=== PATIENT | female | born 1960 | race Caucasian/White ===

== ENCOUNTER 2023-08-13 10:51 | Inpatient (IN) ==
[2023-08-13] MEDS: SODIUM CHLORIDE 0.9% 1,000 ML IV SCH (11:29)
--- NOTE | 2023-08-13 11:39 | Emergency Department Note ---
Impression & Plan Pneumonia, COPD (chronic obstructive pulmonary disease), Diarrhea, Hypokalemia, Acute hyponatremia, Dehydration ED Provider Note NAME: AMBER CORTEZ AGE: 63 SEX: F : 1960 ARRIVES VIA: Walk-In INFORMANT: Patient, ED PROVIDER(S): Shorty Dugan MD CHIEF COMPLAINT: Shortness of breath, weakness, diarrhea HPI: This is a 63-year-old female presenting for 2 weeks worth of shortness of breath, weakness and diarrhea. Patient states that [place] she had some bad food which caused significant diarrhea. This however lasted for multiple days/weeks. She notes that she is still having small amounts of diarrhea even today. Generally feels weak. Otherwise currently denies any chest pain or shortness of breath. She notes she has coughing, yellow sputum. Otherwise no dysuria, hematuria, or nausea or vomiting. ROS: See above HPI for pertinent positives & negatives. A total of 10 systems reviewed and were otherwise negative. PHYSICAL EXAMINATION: General: resting comfortably in no acute distress Head: Normocephalic and atraumatic Eyes: Normal inspection, extraocular muscles intact Ear, nose, throat: Normal external exam Neck: Normal range of motion Respiratory: lungs clear to auscultation bilaterally Cardiovascular: Regular rate/rhythm, no murmur GI: soft, nontender, no guarding or rebound Extremities: nontender, moves all extremities Neuro: The patient awake and alert, appropriately conversive, no focal deficits, symmetric faces Skin: Warm, dry, and intact MEDICAL DECISION MAKING: This a 63-year-old female presented for 2 weeks with her shortness of breath, weakness, diarrhea. Patient has mildly tachycardic at this time rates between 105 and 120. She also hypoxic on arrival with saturations below 88. She currently 2 L nasal cannula satting around 91 to 93%. She does not feel short of breath however. Borderline hypotensive currently, concern for sepsis at this time. -Given 1 L normal saline upfront. -ECG independently interpreted by me with sinus tachycardia, rate of 115, normal axis, normal [place], normal QRS, normal QTc, no ST segment elevations consistent with STEMI criteria, intermittent PACs -Chest x-ray independently interpreted by me showing a focal opacity in the left lower lobe concerning for pneumonia, no pleural effusion or pneumothorax is noted. -Blood work significant abnormal with hyponatremia to 120, hypokalemia 2.7, anion gap as well as transaminitis of unclear etiology -Patient urinalysis reveals no signs UTI -Patient adenovirus positive at this time of due to stent of pneumonia, will do ceftriaxone -Patient does have improved blood pressures after fluid resuscitation. She feels better with oxygen -CT imaging does not reveal acute process in the abdomen or pulm embolism does reveal a pneumonia previously stated -Patient required mission at this time for pneumonia treatment was hyponatremia and hypokalemia Differential diagnosis: Sepsis, pneumonia, PE, ACS, dissection ER treatment provided: See below Diagnostics interpreted by me: ECG: See above Cardiac Monitoring: An order was placed for continuous cardiac monitoring. The monitor shows a rate of 81, sinus rhythm. Laboratory studies: As stated above and show below. Imaging studies: See below. Critical Care Note: I have personally spent 35 minutes of critical care time in the direct management of this patient. This includes bedside care, interpretation of diagnostic studies, and testing, discussion with consultants, patient, and family members, and other required patient management activities. This 35 minutes is in excess of all separately billable procedures. Past Med/Surg History Medical History (Updated 08/13/23 @ 18:11 by Shorty Dugan MD) Alcohol use Tobacco use HTN (hypertension) Dyslipidemia COPD (chronic obstructive pulmonary disease) Surgical History History of hysterectomy Family History Other Cancer Coronary heart disease Social History Smoking Status: Current every day smoker Hx Alcohol Use: Yes (2-3 beers daily) Hx Substance Use: No Feels Safe at Home: Yes Allergies Allergies Allergy/AdvReac Type Severity Reaction Status Date / Time No Known Allergies Allergy Unknown Verified 03/30/05 13:21 aspirin AdvReac Mild UPSET Verified 06/07/09 04:19 STOMACH Home Meds Home Medications Medication Instructions Recorded Confirmed albuterol sulfate 90 mcg/actuation 2 puff inhalation Q4H PRN 08/13/23 08/13/23 aerosol inhaler Shortness Of Breath Or Wheezing atorvastatin 10 mg tablet 10 mg PO DAILY 08/13/23 08/13/23 fluticasone propionate 50 2 spray intranasal DAILY 08/13/23 08/13/23 mcg/actuation nasal spray,suspension lisinopril 10 mg tablet 10 mg PO DAILY 08/13/23 08/13/23 umeclidinium 62.5 mcg-vilanterol 1 inh inhalation DAILY 08/13/23 08/13/23 25 mcg/actuation powdr for inhalation (Anoro Ellipta) Results & Data (ED) Vital Signs Vital Signs - 24 hr 08/13/23 10:58 08/13/23 11:03 08/13/23 11:09 Temperature 36.0 C L Temperature Source Temporal Artery Scan Pulse Rate 117 H 108 H 104 H Pulse Rate [Apical] Pulse Rate from SpO2 Sensor 105 H Respiratory Rate 20 20 20 Respiratory Effort / Characteristics Respiratory Depth Blood Pressure 119/75 109/78 Blood Pressure [Right Arm] Blood Pressure Mean 89 88 Blood Pressure Mean [Right Arm] Blood Pressure Position Sitting Pulse Oximetry 88 L 91 91 Oxygen Delivery Method Room Air Nasal Cannula Room Air Oxygen Flow Rate 2 Sepsis Recent Fever Within 48 Hours No Sepsis New/Unexplained Change in Mental Status No Sepsis Action Taken by Nursing No Action Required 08/13/23 11:25 08/13/23 11:30 08/13/23 11:44 Temperature Temperature Source Pulse Rate 102 H 102 H Pulse Rate [Apical] Pulse Rate from SpO2 Sensor 104 H 97 H Respiratory Rate 19 18 Respiratory Effort / Characteristics Respiratory Depth Blood Pressure 101/66 91/64 L Blood Pressure [Right Arm] Blood Pressure Mean 77 73 Blood Pressure Mean [Right Arm] Blood Pressure Position Pulse Oximetry 91 91 89 L Oxygen Delivery Method Room Air Room Air Nasal Cannula Oxygen Flow Rate 2 Sepsis Recent Fever Within 48 Hours Sepsis New/Unexplained Change in Mental Status Sepsis Action Taken by Nursing 08/13/23 11:45 08/13/23 12:03 08/13/23 13:00 Temperature Temperature Source Pulse Rate 104 H Pulse Rate [Apical] 101 H Pulse Rate from SpO2 Sensor Respiratory Rate 20 Respiratory Effort / Characteristics Non-Labored Spontaneous Respiratory Depth Normal Blood Pressure Blood Pressure [Right Arm] 104/70 Blood Pressure Mean Blood Pressure Mean [Right Arm] 81 Blood Pressure Position Pulse Oximetry 90 93 Oxygen Delivery Method Nasal Cannula Nasal Cannula Oxygen Flow Rate 3 3 Sepsis Recent Fever Within 48 Hours Sepsis New/Unexplained Change in Mental Status Sepsis Action Taken by Nursing 08/13/23 13:26 08/13/23 13:30 08/13/23 13:42 Temperature Temperature Source Pulse Rate 93 H 101 H Pulse Rate [Apical] Pulse Rate from SpO2 Sensor 104 H Respiratory Rate 26 H 17 Respiratory Effort / Characteristics Respiratory Depth Blood Pressure 104/70 123/87 Blood Pressure [Right Arm] Blood Pressure Mean 81 99 Blood Pressure Mean [Right Arm] Blood Pressure Position Pulse Oximetry 96 91 93 Oxygen Delivery Method Nasal Cannula Nasal Cannula Nasal Cannula Oxygen Flow Rate 4 4 4 Sepsis Recent Fever Within 48 Hours Sepsis New/Unexplained Change in Mental Status Sepsis Action Taken by Nursing 08/13/23 14:00 08/13/23 14:30 08/13/23 15:00 Temperature Temperature Source Pulse Rate 89 83 88 Pulse Rate [Apical] Pulse Rate from SpO2 Sensor 87 83 86 Respiratory Rate 12 31 H 23 Respiratory Effort / Characteristics Respiratory Depth Blood Pressure 107/79 100/70 121/75 Blood Pressure [Right Arm] Blood Pressure Mean 88 80 90 Blood Pressure Mean [Right Arm] Blood Pressure Position Pulse Oximetry 96 96 94 Oxygen Delivery Method Nasal Cannula Nasal Cannula Nasal Cannula Oxygen Flow Rate 4 4 4 Sepsis Recent Fever Within 48 Hours Sepsis New/Unexplained Change in Mental Status Sepsis Action Taken by Nursing Laboratory Data 08/13/23 11:16 08/13/23 11:16 Lab Results 08/13/23 08/13/23 08/13/23 Range/Units 11:10 11:15 11:16 WBC 7.88 (4.8-10.8) K/ul RBC 4.84 (4.20-5.40) M/uL Hgb 15.6 (12.0-16.0) g/dl POC Hgb (12.0-16.0) g/dl Hct 43.5 (37.0-47.0) % POC Hct (37-47) % MCV 89.9 (80.0-100.0) fL MCH 32.2 (25.0-34.0) pg MCHC 35.9 (32.0-36.0) g/dL RDW Std Deviation 39.1 (36.4-46.3) fL RDW Coeff of Aria 11.9 (11.5-14.5) % Plt Count 182 (130-400) K/uL MPV 11.4 (9.4-12.4) fL Immature Gran % (Auto) 1.0 % Neut % (Auto) 82.2 % Lymph % (Auto) 11.5 % [place] % (Auto) 5.2 % Eos % (Auto) 0.0 % Baso % (Auto) 0.1 % Neut # (Auto) 6.47 (1.40-6.50) K/uL Lymph # (Auto) 0.91 L (1.20-3.40) K/uL [place] # (Auto) 0.41 (0.11-0.59) K/uL Eos # (Auto) 0.00 (0.00-0.50) K/uL Baso # (Auto) 0.01 (0.00-0.20) K/uL Immature Gran # (Auto) 0.08 (0.01-0.20) K/uL Echinocytes 1+ POC Sodium (135-144) mmol/L Sodium 120 L (136-145) mmol/L POC Potassium (3.3-5.0) mmol/L Potassium 2.7 L (3.5-5.1) mmol/L POC Chloride (101-112) mmol/L Chloride 83 L (98-107) mmol/L Carbon Dioxide 25 (21-32) mmol/L POC Total CO2 (24-31) mmol/L Anion Gap 12 H (3-11) POC Anion Gap (16-25) mmol/L POC BUN (7-18) mg/dl BUN 13 (6-23) mg/dl Creatinine 0.70 (0.6-1.2) mg/dl POC Creatinine (0.6-1.3) mg/dl Est Cr Clr Drug Dosing 53.7 ml/min Est GFR ( Amer) 106.1 ml/min Est GFR (Non-Af Amer) 91.6 ml/min BUN/Creatinine Ratio 18.6 (10-20) Glucose 240 H (70-99(Fasting)) mg/dl POC Glucose (other) (70-99) mg/dl Lactate 4.7 H* (0.4-2.0) mmol/L Calcium 8.4 L (8.6-10.3) mg/dl POC Ioniz Calcium Aron (1.12-1.32) mmol/l Phosphorus 2.0 L (2.5-4.9) mg/dl Magnesium 2.1 (1.7-2.4) mg/dl Total Bilirubin 0.6 (0.2-1.0) mg/dl Direct Bilirubin 0.2 (0-0.2) mg/dl AST 173 H (13-39) U/L ALT 121 H (7-52) U/L Alkaline Phosphatase 55 (34-104) U/L Troponin I High Sens 9.6 (0-14) pg/ml Total Protein 6.8 (6.0-8.3) gm/dl Albumin 3.5 (3.4-5.0) gm/dl Lipase 62 (11-82) U/L Procalcitonin 0.50 (0-0.5) ng/ml Urine Color Urine Appearance (Clear) Urine pH (4.5-7.5) Ur Specific [place] (1.000-1.030) Urine Protein (Negative) Urine Glucose (UA) (Negative) Urine Ketones (Negative) Urine Blood (Negative) Urine Nitrite (Negative) Urine Bilirubin (Negative) Urine Urobilinogen (Negative) Ur Leukocyte Esterase (Negative) Adenovirus (PCR) DETECTED A (NotDetected) B. pertussis DNA (PCR) Not Detected (NotDetected) B.parapertussis DNA PCR Not Detected (NotDetected) C. pneumoniae DNA (PCR) Not Detected (NotDetected) Coronavirus OC43 (PCR) Not Detected (NotDetected) Coronavirus HKU1 (PCR) Not Detected (NotDetected) Coronavirus 229E (PCR) Not Detected (NotDetected) SARS-CoV-2 (PCR) Not Detected (NotDetected) Coronavirus NL63 (PCR) Not Detected (NotDetected) Human Metapneumovir PCR Not Detected (NotDetected) Influenza Type A (PCR) Not Detected (NotDetected) Influenza Type B (PCR) Not Detected (NotDetected) M. pneumoniae (PCR) Not Detected (NotDetected) Parainfluenza 1 (PCR) Not Detected (NotDetected) Parainfluenza 2 (PCR) Not Detected (NotDetected) Parainfluenza 3 (PCR) Not Detected (NotDetected) Parainfluenza 4 (PCR) Not Detected (NotDetected) RSV (PCR) Not Detected (NotDetected) Entero/Rhino (PCR) Not Detected (NotDetected) 04/12/24 04/12/24 04/12/24 Range/Units 11:29 13:00 13:58 WBC (4.8-10.8) K/ul RBC (4.20-5.40) M/uL Hgb (12.0-16.0) g/dl POC Hgb 13.3 (12.0-16.0) g/dl Hct (37.0-47.0) % POC Hct 39 (37-47) % MCV (80.0-100.0) fL MCH (25.0-34.0) pg MCHC (32.0-36.0) g/dL RDW Std Deviation (36.4-46.3) fL RDW Coeff of Aria (11.5-14.5) % Plt Count (130-400) K/uL MPV (9.4-12.4) fL Immature Gran % (Auto) % Neut % (Auto) % Lymph % (Auto) % [place] % (Auto) % Eos % (Auto) % Baso % (Auto) % Neut # (Auto) (1.40-6.50) K/uL Lymph # (Auto) (1.20-3.40) K/uL [place] # (Auto) (0.11-0.59) K/uL Eos # (Auto) (0.00-0.50) K/uL Baso # (Auto) (0.00-0.20) K/uL Immature Gran # (Auto) (0.01-0.20) K/uL Echinocytes POC Sodium 125 L (135-144) mmol/L Sodium (136-145) mmol/L POC Potassium 2.2 L* (3.3-5.0) mmol/L Potassium (3.5-5.1) mmol/L POC Chloride 86 L (101-112) mmol/L Chloride (98-107) mmol/L Carbon Dioxide (21-32) mmol/L POC Total CO2 24 (24-31) mmol/L Anion Gap (3-11) POC Anion Gap 18.0 (16-25) mmol/L POC BUN 9 (7-18) mg/dl BUN (6-23) mg/dl Creatinine (0.6-1.2) mg/dl POC Creatinine 0.5 L (0.6-1.3) mg/dl Est Cr Clr Drug Dosing ml/min Est GFR ( Amer) ml/min Est GFR (Non-Af Amer) ml/min BUN/Creatinine Ratio (10-20) Glucose (70-99(Fasting)) mg/dl POC Glucose (other) 216 H (70-99) mg/dl Lactate 2.2 H* (0.4-2.0) mmol/L Calcium (8.6-10.3) mg/dl POC Ioniz Calcium Aron 0.90 L (1.12-1.32) mmol/l Phosphorus (2.5-4.9) mg/dl Magnesium (1.7-2.4) mg/dl Total Bilirubin (0.2-1.0) mg/dl Direct Bilirubin (0-0.2) mg/dl AST (13-39) U/L ALT (7-52) U/L Alkaline Phosphatase (34-104) U/L Troponin I High Sens (0-14) pg/ml Total Protein (6.0-8.3) gm/dl Albumin (3.4-5.0) gm/dl Lipase (11-82) U/L Procalcitonin (0-0.5) ng/ml Urine Color Yellow Urine Appearance Clear (Clear) Urine pH 6.5 (4.5-7.5) Ur Specific [place] 1.004 (1.000-1.030) Urine Protein Negative (Negative) Urine Glucose (UA) Trace H (Negative) Urine Ketones Negative (Negative) Urine Blood Negative (Negative) Urine Nitrite Negative (Negative) Urine Bilirubin Negative (Negative) Urine Urobilinogen Negative (Negative) Ur Leukocyte Esterase Negative (Negative) Adenovirus (PCR) (NotDetected) B. pertussis DNA (PCR) (NotDetected) B.parapertussis DNA PCR (NotDetected) C. pneumoniae DNA (PCR) (NotDetected) Coronavirus OC43 (PCR) (NotDetected) Coronavirus HKU1 (PCR) (NotDetected) Coronavirus 229E (PCR) (NotDetected) SARS-CoV-2 (PCR) (NotDetected) Coronavirus NL63 (PCR) (NotDetected) Human Metapneumovir PCR (NotDetected) Influenza Type A (PCR) (NotDetected) Influenza Type B (PCR) (NotDetected) M. pneumoniae (PCR) (NotDetected) Parainfluenza 1 (PCR) (NotDetected) Parainfluenza 2 (PCR) (NotDetected) Parainfluenza 3 (PCR) (NotDetected) Parainfluenza 4 (PCR) (NotDetected) RSV (PCR) (NotDetected) Entero/Rhino (PCR) (NotDetected) Administered Medications Discontinued Medications Sodium Chloride (Nss) 1,000 mls @ 999 mls/hr IV .Q1H1M DANNIE Stop: 08/13/23 13:15 Last Infusion: 08/13/23 14:29 Dose: Infused Documented By: Admin: 08/13/23 13:23 Dose: 999 mls/hr Documented By: Infusion: 08/13/23 12:30 Dose: Infused Documented By: Admin: 08/13/23 11:29 Dose: 999 mls/hr Documented By: Magnesium Sulfate/Dextrose (Magnesium Sulfate / D5w) 1 gm in 100 mls @ 200 mls/hr IV Q30M DANNIE Stop: 08/13/23 12:33 Last Infusion: 08/13/23 12:40 Dose: Infused Documented By: Admin: 08/13/23 12:10 Dose: 200 mls/hr Documented By: Infusion: 08/13/23 12:10 Dose: Infused Documented By: Admin: 08/13/23 11:41 Dose: 200 mls/hr Documented By: Ceftriaxone Sodium (Rocephin) 1,000 mg in 50 mls @ 100 mls/hr IV NOW STA Stop: 08/13/23 13:18 Last Infusion: 08/13/23 13:50 Dose: Infused Documented By: Admin: 08/13/23 13:20 Dose: 100 mls/hr Documented By: Doxycycline Hyclate 100 mg/ (Dextrose) 100 mls @ 50 mls/hr IV NOW ONE Stop: 08/13/23 17:14 Last Admin: 08/13/23 15:48 Dose: 50 mls/hr Documented By: ALVINA Ioversol (Optiray 320 125ml) 118 ml IV ONCE ONE Stop: 08/13/23 13:18 Last Admin: 08/13/23 13:17 Dose: 118 ml Documented By: STEPHANIE Potassium Chloride (Potassium Chloride Crtab 20 Meq Tabcr) 40 meq PO NOW STA Stop: 08/13/23 12:13 Last Admin: 08/13/23 13:23 Dose: 40 meq Documented By: Imaging Data Radiologist's Impression: Chest X-Ray 08/13/23 11:03 XR chest 1V portable CLINICAL HISTORY: Sepsis TECHNIQUE: Single frontal radiograph of the chest was obtained. Comparison: Comparison is made to chest radiograph 03/14/2018 FINDINGS: No lines and tubes are seen. Calcified aortic knob is seen. Left-sided airspace opacities are seen. No evidence of pleural effusion or pneumothorax. IMPRESSION: Left airspace opacities are compatible with pneumonia. ACT 112: Negative or not required by law. Electronically signed by: Bentley Pedroza M.D. 08/13/2023 11:56 AM Chest CTA 08/13/23 11:22 CT angio chest PE protocol Further HISTORY: 63 years-old Female with PE. Acute shortness of breath TECHNIQUE: Multiple CTA images of the chest were obtained after the intravenous administration of 118 ml Optiray. Coronal and sagittal MIPS were obtained from the axial data set and were submitted for review. All measurements were obtained according to NASCET criteria. A dose lowering technique was utilized adhering to the principles of ALARA. COMPARISON: CT abdomen and pelvis of same day FINDINGS: CTA: Heart is mildly enlarged. No pericardial effusion. No thoracic aortic aneurysm or dissection. Patency of the image great vessels. Mild descending thoracic aortic tortuosity. No pulmonary emboli identified. CT CHEST: No thyroid nodule identified. There is mild mediastinal and hilar lymphadenopathy which includes subcarinal lymph nodes measuring up to 1.3 cm in short axis. Mild nonspecific circumferential wall thickening of the mid to distal esophagus. Trace left pleural effusion. No pneumothorax. Moderate pulmonary emphysema with bronchitis and mucous plugging. The right lung is generally clear. There is multifocal dense airspace consolidation throughout the left lung and a multisegmental distribution with air bronchograms. No suspicious pulmonary nodules or masses identified. No acute upper abdominal abnormality. No acute fracture. IMPRESSION: 1. No pulmonary emboli identified. 2. Multifocal pneumonia throughout the left lung. Follow-up imaging after treatment course recommended in order to document resolution. 3. Moderate emphysema with bronchitis and mucous plugging. 4. Trace left pleural effusion. 5. Mediastinal and hilar lymphadenopathy is likely reactive. ACT 112: Negative or not required by law. The above report was generated using voice recognition software. It may contain grammatical, syntax or spelling errors. Electronically signed by: John Fountain M.D. 08/13/2023 2:23 PM Abdomen/Pelvis CT 08/13/23 11:[address] WITH IV CONTRAST CT DOSE: 553.14 mGy.cm HISTORY: diarrhea w/ pain for 2 weeks TECHNIQUE: Multiaxial CT images of the abdomen and pelvis were performed following the use of intravenous contrast. A dose lowering technique was utilized adhering to the principles of ALARA. COMPARISON STUDY: None. FINDINGS: Consolidative airspace opacities within the left lower lobe with additional interstitial thickening and groundglass densities within the left lung base consistent with a pneumonia. The left lower lobe bronchi are partially opacified. Therefore, this could be due to prior aspiration. This is better appreciated on the same day chest CT. Emphysema is noted at the lung bases. No pneumoperitoneum. No pneumatosis. No acute fractures. A 5 mm hypodense lesion within the left hepatic lobe and a 5 mm hypodense lesion within the right kidney. These are technically due to small to characterize but statistically represent cysts. The main portal vein is patent. The gallbladder, pancreas, spleen, adrenal glands, left kidney are unremarkable. No hydronephrosis. Small nodule adjacent to the left kidney on image 92 favors an accessory spleen rather than a renal lesion. Moderate calcified plaque within the normal caliber abdominal aorta. No retroperitoneal or pelvic lymphadenopathy. No pelvic free fluid. No bladder wall thickening. Prior hysterectomy. Colonic diverticulosis. No evidence for acute diverticulitis. No bowel wall thickening or obstruction. Normal appendix. IMPRESSION: 1. Left lower lobe airspace opacities consistent with a pneumonia. 2. No bowel wall thickening or obstruction. 3. Colonic diverticulosis. No evidence for acute diverticulitis. 4. Normal appendix. 5. Additional findings described above.. ACT 112: Negative or not required by law. Electronically signed by: Jung Sylvester M.D. 08/13/2023 1:46 PM Discharge Plan Visit Data Chief Complaint: Illness Stated Complaint: VIRAL INFECTION ED Provider: Shorty Dugan Discharge Problem: Pneumonia, COPD (chronic obstructive pulmonary disease), Diarrhea, Hypokalemia, Acute hyponatremia, Dehydration Patient Disposition: Admitted As Inpatient Discharge Instructions Interventions: ED Discharge Assessment Last Done: 08/13/23 17:00
[2023-08-13] MEDS: MAGNESIUM SULFATE / D5W 1 GM/100 ML BAG IV SCH (11:41)
[2023-08-13 11:42] LABS: iSTAT Creatinine 0.5 mg/dl (0.6-1.3); iSTAT Hemoglobin 13.3 g/dl (12.0-16.0); iSTAT Ionized Calcium 0.9 mmol/l (1.12-1.32); iSTAT Potassium 2.2 mmol/L (3.3-5.0)
[2023-08-13 11:50] LABS: Hematocrit (blood only) 43.5 % (37.0-47.0); Hemoglobin 15.6 g/dl (12.0-16.0); Mean Corpuscular Hemoglobin 32.2 pg (25.0-34.0); Mean Corpuscular Hgb Conc 35.9 g/dL (32.0-36.0); Mean Corpuscular Volume 89.9 fL (80.0-100.0); Mean Platelet Volume 11.4 fL (9.4-12.4); Platelet Count 182 K/uL (130-400); RDW Coefficient of Variation 11.9 % (11.5-14.5); RDW Standard Deviation 39.1 fL (36.4-46.3); Red Blood Count 4.84 M/uL (4.20-5.40); White Blood Count 7.88 K/ul (4.8-10.8)
--- NOTE | 2023-08-13 11:57 | XRay Report ---
XR chest 1V portable CLINICAL HISTORY: Sepsis TECHNIQUE: Single frontal radiograph of the chest was obtained. Comparison: Comparison is made to chest radiograph 03/14/2018 FINDINGS: No lines and tubes are seen. Calcified aortic knob is seen. Left-sided airspace opacities are seen. N o evidence of pleural effusion or pneumothorax. IMPRESSION: Left airspace opacities are compatible with pneumonia. ACT 112: Negative or not required by law. Electronically signed by: Bentley Pedroza M.D. 08/13/2023 11:56 AM
[2023-08-13 12:03] LABS: Albumin Level 3.5 gm/dl (3.4-5.0); BUN Creatinine Ratio 18.6 (10-20); Bilirubin Direct 0.2 mg/dl (0-0.2); Bilirubin,Total 0.6 mg/dl (0.2-1.0); Calcium 8.4 mg/dl (8.6-10.3); Creatinine Clr Calc Pharmacy 53.7 ml/min; Est GFR (African American) 106.1 ml/min; Est GFR (Non-African American) 91.6 ml/min; Magnesium 2.1 mg/dl (1.7-2.4); Potassium 2.7 mmol/L (3.5-5.1); Total Protein 6.8 gm/dl (6.0-8.3)
[2023-08-13 12:08] LABS: Troponin I High Sensitivity 9.6 pg/ml (0-14)
[2023-08-13 12:26] LABS: Basophils # (auto) 0.01 K/uL (0.00-0.20); Basophils % (auto) 0.1 %; Echinocytes 1+; Immature Granulocytes # (auto) 0.08 K/uL (0.01-0.20); Lymphocytes # (auto) 0.91 K/uL (1.20-3.40); Lymphocytes % (auto) 11.5 %; Monocytes # (auto) 0.41 K/uL (0.11-0.59); Monocytes % (auto) 5.2 %; Neutrophils # (auto) 6.47 K/uL (1.40-6.50); Neutrophils % (auto) 82.2 %
[2023-08-13 12:41] LABS: Adenovirus PCR DETECTED (NotDetected); Bordetella parapertussis PCR Not Detected (NotDetected); Bordetella pertussis PCR Not Detected (NotDetected); Chlamydia pneumoniae PCR Not Detected (NotDetected); Coronavirus 229E PCR Not Detected (NotDetected); Coronavirus CoV-2 (COVID19)PCR Not Detected (NotDetected); Coronavirus HKU1 PCR Not Detected (NotDetected); Coronavirus NL63 PCR Not Detected (NotDetected); Coronavirus OC43PCR Not Detected (NotDetected); Human Metapneumovirus PCR Not Detected (NotDetected); Influenza A PCR Not Detected (NotDetected); Influenza B PCR Not Detected (NotDetected); Mycoplasma pneumoniae PCR Not Detected (NotDetected); Parainfluenza Virus 1 PCR Not Detected (NotDetected); Parainfluenza Virus 2 PCR Not Detected (NotDetected); Parainfluenza Virus 3 PCR Not Detected (NotDetected); Parainfluenza Virus 4 PCR Not Detected (NotDetected); Respiratory Syncytial VirusPCR Not Detected (NotDetected); Rhinovirus/Enterovirus PCR Not Detected (NotDetected)
[2023-08-13] MEDS: OPTIRAY 320 125ml IV ONE (13:17)
[2023-08-13] MEDS: cefTRIAXone SODIUM 1,000 MG/50 ML BAG IV STA (13:20)
[2023-08-13] MEDS: POTASSIUM CHLORIDE CRTAB 20 MEQ TABCR PO STA (13:23)
[2023-08-13 13:30] LABS: Appearance Urine Clear (Clear); Bilirubin Urine Negative (Negative); Blood Urine Negative (Negative); Color Urine Yellow; Glucose Urine UA Trace (Negative); Ketones Urine Negative (Negative); Leukocyte Esterase Urine Negative (Negative); Nitrite Urine Negative (Negative); Protein Urine Negative (Negative); Specific Gravity Urine 1.004 (1.000-1.030); Urobilinogen Urine Negative (Negative); pH Urine 6.5 (4.5-7.5)
--- NOTE | 2023-08-13 13:48 | CT Scan Report ---
ABDOMEN AND PELVIS CT WITH IV CONTRAST CT DOSE: 553.14 mGy.cm HISTORY: diarrhea w/ pain for 2 weeks TECHNIQUE: Multiaxial CT images of the abdomen and pelvis were performed following the use of intrave nous contrast. A dose lowering technique was utilized adhering to the principles of ALARA. COMPARISON STUDY: None. FINDINGS: Consolidative airspace opacities within the left lower lobe with additional interstitial th ickening and groundglass densities within the left lung base consistent with a pneumonia. The left lo wer lobe bronchi are partially opacified. Therefore, this could be due to prior aspiration. This is b christina appreciated on the same day chest CT. Emphysema is noted at the lung bases. No pneumoperitoneum . No pneumatosis. No acute fractures. A 5 mm hypodense lesion within the left hepatic lobe and a 5 mm hypodense lesion within the right kidney. These are technically due to small to characterize but sta tistically represent cysts. The main portal vein is patent. The gallbladder, pancreas, spleen, adrena l glands, left kidney are unremarkable. No hydronephrosis. Small nodule adjacent to the left kidney o n image 92 favors an accessory spleen rather than a renal lesion. Moderate calcified plaque within th e normal caliber abdominal aorta. No retroperitoneal or pelvic lymphadenopathy. No pelvic free fluid. No bladder wall thickening. Prior hysterectomy. Colonic diverticulosis. No evidence for acute divert iculitis. No bowel wall thickening or obstruction. Normal appendix. IMPRESSION: 1. Left lower lobe airspace opacities consistent with a pneumonia. 2. No bowel wall thickening or obstruction. 3. Colonic diverticulosis. No evidence for acute diverticulitis. 4. Normal appendix. 5. Additional findings described above.. ACT 112: Negative or not required by law. Electronically signed by: Jung Sylvester M.D. 08/13/2023 1:46 PM
--- NOTE | 2023-08-13 14:09 | History & Physical Report ---
Date of Service August 13, 2023 Assessment & Plan (1) Pneumonia: Plan: Patient is 63 year old female with PMH COPD, tobacco use, HTN, dyslipidemia presented to ER with complaint of weakness and diarrhea and cough x 2 weeks In ER noted to be hypoxic 88% on room air up to 93% on 3 L. Initially tachycardic 117, BP 119/75, respirations 20, afebrile Lactate: 4.7--> 2.2. No leukocytosis. Procalcitonin: 0.5. + Adenovirus on [employer] respiratory panel CXR: Opacities left lung CTA chest: No pulmonary emboli identified. Multifocal pneumonia throughout the left lung. Moderate emphysema with bronchitis and mucous plugging. Trace left pleural effusion. Mediastinal and hilar lymphadenopathy is likely reactive In ER given Rocephin 1 g IV, 1L NSS Legionella pending Supplemental oxygen as needed Trend lactate Hold on further IVF until repeat BMP given hyponatremia Continue Rocephin, add doxycycline DuoNebs Incentive spirometry, flutter valve, guaifenesin CBC, CMP in a.m. (2) Diarrhea: Plan: - 08/05/23 had gross red blood from rectum with mucous, mostly all blood without stool. Since that time having diarrhea with 3 episodes daily initially had tactile fever and chills lasted 3-4 days. No further tactile fevers. Afebrile in ER CT abdomen pelvis: No bowel wall thickening or obstruction. Colonic diverticulosis. No evidence for acute diverticulitis. Normal appendix. If recurrent diarrhea obtain stool studies, C. difficile (3) Hypokalemia: Plan: K: 2.7 In ER given 40 mEq KCl p.o. Continue replace with 2K riders and 40 mEq KCl this evening Repeat BMP tonight BMP in a.m. (4) Hyponatremia: Plan: Na: 122 corrected for glucose of 240 Suspect acute hyponatremia from GI losses and poor oral intake. Legionella testing pending In ER given 1 L NSS Repeat BMP tonight to further assess IVF needs BMP in a.m. If no improvement may need to consider nephrology consult (5) Elevated LFTs: Plan: AST: 173, ALT: 121 with normal T. bili and alk phos. No comparison LFTs available at this time Prior 3 beer daily drinker. Has not had a drink for past 12 days Repeat CMP in a.m. May need further workup (6) Elevated glucose: Plan: Random glucose: 240 No prior diagnosis of diabetes A1c in a.m. NovoLog sliding scale per protocol (7) COPD (chronic obstructive pulmonary disease): Plan: Continue home inhalers Scheduled DuoNebs On antibiotics as above (8) HTN (hypertension): Plan: Continue lisinopril (9) Dyslipidemia: Plan: Continue atorvastatin (10) Tobacco use: Plan: Smoking since age 16, 0.5 PPD Has not smoked for the past 2 weeks Encouraged continue smoking cessation Denies nicotine patch at this time (11) Alcohol use: Plan: Drinks 3 beers daily. Has not had drink since 08/02/2023. Denies a history of alcohol withdrawal Low likelihood withdrawal currently being 2 weeks and/drink DVT Prophylaxis Heparin SQ Full Code as per discussion with pt Follows with Dr Painting for routine care Pt was seen and care coordinated with Dr Salinas. See addendum I spent a total of 78 minutes reviewing notes, outpatient records, labs, medication, coordinating, documenting and providing care for this patient excluding time spent in the performance of separately billed services. History of Present Illness Chief Complaint: weakness, diarrhea Primary Care Provider: Bradyen Painting MD Patient is 63 year old female with PMH COPD, tobacco use, HTN, dyslipidemia presented to ER with complaint of weakness and diarrhea. History obtained from patient and outpatient chart review. Patient states on 08/03/23 came back from [place] and ate rotisserie chicken and 30 minutes later started with hematochezia. - 08/05/23 had gross red blood from rectum with mucous, mostly all blood without stool. Since that time having diarrhea with 3 episodes daily that has continued. Watery stools. Had tactile fever and chills lasted 3-4 days. Seen PCPs office 08/04/2023 for diarrhea and hematochezia and initially thought may be food poisoning, however patient reports continued symptoms. She states has been coughing x 2 weeks of productive yellow and brownish color sputum. Feels cough might be a little better past couple of days. Denies CP, or noted SOB. Does not wear oxygen at baseline. Recently some dizziness with walking. Last diarrhea yesterday. Initially when symptoms began reports abdominal cramping and bloating which have since resolved but diarrhea continues. Reports poor oral intake. Denies syncope. States this week is just felt "wiped out". Past couple weeks hasn't been smoking. Prior to that 1/2ppd. Smoking started age 16. Drinks 2-3 beers nightly. Last drink 08/02/23. Denies N/V/D/C, ALLISON, orthopnea, palpitations, hemoptysis, sore throat, choking, otalgia, paresthesias, extremity edema, rashes, urinary symptoms. Allergies Allergy/AdvReac Type Severity Reaction Status Date / Time No Known Allergies Allergy Unknown Verified 03/30/05 13:21 aspirin AdvReac Mild UPSET Verified 06/07/09 04:19 STOMACH Home Medications Medication Instructions Recorded Confirmed Type albuterol sulfate 90 mcg/actuation 2 puff inhalation Q4H PRN 08/13/23 08/13/23 History aerosol inhaler Shortness Of Breath Or Wheezing atorvastatin 10 mg tablet 10 mg PO DAILY 08/13/23 08/13/23 History fluticasone propionate 50 2 spray intranasal DAILY 08/13/23 08/13/23 History mcg/actuation nasal spray,suspension lisinopril 10 mg tablet 10 mg PO DAILY 08/13/23 08/13/23 History umeclidinium 62.5 mcg-vilanterol 1 inh inhalation DAILY 08/13/23 08/13/23 History 25 mcg/actuation powdr for inhalation (Anoro Ellipta) Past Med/Surg History Medical History Alcohol use Tobacco use HTN (hypertension) Dyslipidemia COPD (chronic obstructive pulmonary disease) Surgical History History of hysterectomy Family History Other Cancer Coronary heart disease Social History Smoking Status: Former smoker Hx Alcohol Use: Yes Hx Substance Use: No Current Living Situation: Alone Feels Safe at Home: Yes Review of Systems Review of Systems: All systems reviewed & are unremarkable except as noted in HPI & below Physical Exam Physical Exam: General: chronic ill appearing, in no respiratory distress on 3L via NC, thin female Head: normocephalic, atraumatic Eyes: conjunctiva non-injected, anicteric ENT: normal inspection external ears, nose, mucous membranes dry Neck: supple, trachea midline Lungs: no respiratory distress on current 3L via NC with O2 sat 95%, speaks in sentences. +rhonchi and wheezing throughout CV: RRR, no murmur, no pretibial edema Abd: normal BS, soft, non-tender Ext: no cyanosis, no calf tenderness Neuro: A&O x 3, no focal deficits noted, normal affect Skin: warm, dry Results & Data Results & Data Vital Signs (Past 12 Hours) Vital Signs Temp Pulse Pulse Resp BP BP Pulse Ox 08/13/23 13:42 93 08/13/23 13:00 101 H 20 104/70 93 08/13/23 12:03 104 H 08/13/23 11:45 90 08/13/23 11:44 89 L 08/13/23 11:30 102 H 18 91/64 L 91 08/13/23 11:25 102 H 19 101/66 91 08/13/23 11:09 104 H 20 109/78 91 08/13/23 11:03 108 H 20 91 08/13/23 10:58 36.0 C L 117 H 20 119/75 88 L O2 Del Method O2 Flow Rate 08/13/23 13:42 Nasal Cannula 4 08/13/23 13:00 Nasal Cannula 3 08/13/23 12:03 08/13/23 11:45 Nasal Cannula 3 08/13/23 11:44 Nasal Cannula 2 08/13/23 11:30 Room Air 08/13/23 11:25 Room Air 08/13/23 11:09 Room Air 08/13/23 11:03 Nasal Cannula 2 08/13/23 10:58 Room Air Laboratory Results Short CBC 08/13/23 Range/Units 11:16 WBC 7.88 (4.8-10.8) K/ul Hgb 15.6 (12.0-16.0) g/dl Hct 43.5 (37.0-47.0) % Plt Count 182 (130-400) K/uL BMP 08/13/23 11:16 Sodium 120 L Potassium 2.7 L Chloride 83 L Carbon Dioxide 25 BUN 13 Creatinine 0.70 Glucose 240 H Calcium 8.4 L Liver Function 08/13/23 Range/Units 11:16 Total Bilirubin 0.6 (0.2-1.0) mg/dl Direct Bilirubin 0.2 (0-0.2) mg/dl AST 173 H (13-39) U/L ALT 121 H (7-52) U/L Alkaline Phosphatase 55 (34-104) U/L Albumin 3.5 (3.4-5.0) gm/dl Urine 08/13/23 Range/Units 13:00 Urine Color Yellow Urine Appearance Clear (Clear) Urine pH 6.5 (4.5-7.5) Ur Specific Lemmon 1.004 (1.000-1.030) Urine Protein Negative (Negative) Urine Glucose (UA) Trace H (Negative) Diagnostic Findings Chest X-Ray 08/13/23 11:03 XR chest 1V portable CLINICAL HISTORY: Sepsis TECHNIQUE: Single frontal radiograph of the chest was obtained. Comparison: Comparison is made to chest radiograph 03/14/2018 FINDINGS: No lines and tubes are seen. Calcified aortic knob is seen. Left-sided airspace opacities are seen. No evidence of pleural effusion or pneumothorax. IMPRESSION: Left airspace opacities are compatible with pneumonia. ACT 112: Negative or not required by law. Electronically signed by: Bentley Pedroza M.D. 08/13/2023 11:56 AM Chest CTA 08/13/23 11:22 CT angio chest PE protocol Further HISTORY: 63 years-old Female with PE. Acute shortness of breath TECHNIQUE: Multiple CTA images of the chest were obtained after the intravenous administration of 118 ml Optiray. Coronal and sagittal MIPS were obtained from the axial data set and were submitted for review. All measurements were obtained according to NASCET criteria. A dose lowering technique was utilized adhering to the principles of ALARA. COMPARISON: CT abdomen and pelvis of same day FINDINGS: CTA: Heart is mildly enlarged. No pericardial effusion. No thoracic aortic aneurysm or dissection. Patency of the image great vessels. Mild descending thoracic aortic tortuosity. No pulmonary emboli identified. CT CHEST: No thyroid nodule identified. There is mild mediastinal and hilar lymphadenopathy which includes subcarinal lymph nodes measuring up to 1.3 cm in short axis. Mild nonspecific circumferential wall thickening of the mid to dist al esophagus. Trace left pleural effusion. No pneumothorax. Moderate pulmonary emphysema with bronchitis and mucous plugging. The right lung is generally clear. There is multifocal dense airspace consolidation throughout the left lung and a multisegmental distribution with air bronchograms. No suspicious pulmonary nodules or masses identified. No acute upper abdominal abnormality. No acute fracture. IMPRESSION: 1. No pulmonary emboli identified. 2. Multifocal pneumonia throughout the left lung. Follow-up imaging after treatment course recommended in order to document resolution. 3. Moderate emphysema with bronchitis and mucous plugging. 4. Trace left pleural effusion. 5. Mediastinal and hilar lymphadenopathy is likely reactive. ACT 112: Negative or not required by law. The above report was generated using voice recognition software. It may contain grammatical, syntax or spelling errors. Electronically signed by: John Fountain M.D. 08/13/2023 2:23 PM Abdomen/Pelvis CT 08/13/23 11:[address] WITH IV CONTRAST CT DOSE: 553.14 mGy.cm HISTORY: diarrhea w/ pain for 2 weeks TECHNIQUE: Multiaxial CT images of the abdomen and pelvis were performed following the use of intravenous contrast. A dose lowering technique was utilized adhering to the principles of ALARA. COMPARISON STUDY: None. FINDINGS: Consolidative airspace opacities within the left lower lobe with additional interstitial thickening and groundglass densities within the left lung base consistent with a pneumonia. The left lower lobe bronchi are partially opacified. Therefore, this could be due to prior aspiration. This is better appreciated on the same day chest CT. Emphysema is noted at the lung bases. No pneumoperitoneum. No pneumatosis. No acute fractures. A 5 mm hypodense lesion within the left hepatic lobe and a 5 mm hypodense lesion within the right kidney. These are technically due to small to characterize but statistically represent cysts. The main portal vein is patent. The gallbladder, pancreas, spleen, adrenal glands, left kidney are unremarkable. No hydronephrosis. Small nodule adjacent to the left kidney on image 92 favors an accessory spleen rather than a renal lesion. Moderate calcified plaque within the normal caliber abdominal aorta. No retroperitoneal or pelvic lymphadenopathy. No pelvic free fluid. No bladder wall thickening. Prior hysterectomy. Colonic diverticulosis. No evidence for acute diverticulitis. No bowel wall thickening or obstruction. Normal appendix. IMPRESSION: 1. Left lower lobe airspace opacities consistent with a pneumonia. 2. No bowel wall thickening or obstruction. 3. Colonic diverticulosis. No evidence for acute diverticulitis. 4. Normal appendix. 5. Additional findings described above.. ACT 112: Negative or not required by law. Electronically signed by: Jung Sylvester M.D. 08/13/2023 1:46 PM Supervising Physician Co-Signing Physician Notes Pt seen and examined by me , care coordinated w/ Temo Arias PA-C, pls refer to her note above for further detail. Pt is 63 yo F with COPD, tobacco use, HTN, dyslipidemia who presents with weakness and diarrhea, found to be positive for adenovirus and having pna on chest imaging, hypoxic on 3L of suppl. O2. In addition with electrolyte abnormalities - hyponatremia, hypokalemia, hypophosphatemia. Lactate elevated in ER 4.7 -> 2.2, AST, ALT also elevated 173, 121 respectively. Patient states on 08/03/23 came back from [place] and ate rotisserie chicken and 30 minutes later started with hematochezia. - 08/05/23 had gross red blood from rectum with mucous, mostly all blood without stool. Since that time having diarrhea with 3 episodes daily that has continued. Watery stools. Had tactile fever and chills lasted 3-4 days. Seen PCPs office 08/04/2023 for diarrhea and hematochezia and initially thought may be food poisoning. Stool are now improved and pt denies any more blood in her stool. She states has been coughing x 2 weeks of productive yellow and brownish color sputum. Does not wear oxygen at baseline. Currently sitting up in bed, in NAD, on suppl. O2, watching TV in ED room. She is awake , alert and answers appropriately, she has no conversational dyspnea and overall appears comfortable. Started on rocephin in the ED, will continue, and will add doxy. Legionella antigen pending. Will also obtain stool studies. Will start probiotics. Also add guaifenesin, flutter valve, IS, and try to wean off oxygen. replace electrolytes. She received 2L of NS in the ED, with initial sodium level of 120. Re-check BMP this PM and tmrw AM. MD Rita Update: Na level 130 and pt started on D5W, will recheck Na level tmrw AM.
--- NOTE | 2023-08-13 14:24 | CT Scan Report ---
CT angio chest PE protocol Further HISTORY: 63 years-old Female with PE. Acute shortness of breath TECHNIQUE: Multiple CTA images of the chest were obtained after the intravenous administration of 118 ml Optiray. Coronal and sagittal MIPS were obtained from the axial data set and were submitted for review. All measurements were obtained according to NASCET criteria. A dose lowering technique was u tilized adhering to the principles of ALARA. COMPARISON: CT abdomen and pelvis of same day FINDINGS: CTA: Heart is mildly enlarged. No pericardial effusion. No thoracic aortic aneurysm or dissection. Patency of the image great vessels. Mild descending thoracic aortic tortuosity. No pulmonary emboli identifi ed. CT CHEST: No thyroid nodule identified. There is mild mediastinal and hilar lymphadenopathy which includes subc arinal lymph nodes measuring up to 1.3 cm in short axis. Mild nonspecific circumferential wall thicke norris of the mid to distal esophagus. Trace left pleural effusion. No pneumothorax. Moderate pulmonary emphysema with bronchitis and mucous plugging. The right lung is generally clear. There is multifoca l dense airspace consolidation throughout the left lung and a multisegmental distribution with air br onchograms. No suspicious pulmonary nodules or masses identified. No acute upper abdominal abnormality. No acute fracture. IMPRESSION: 1. No pulmonary emboli identified. 2. Multifocal pneumonia throughout the left lung. Follow-up imaging after treatment course recommende d in order to document resolution. 3. Moderate emphysema with bronchitis and mucous plugging. 4. Trace left pleural effusion. 5. Mediastinal and hilar lymphadenopathy is likely reactive. ACT 112: Negative or not required by law. The above report was generated using voice recognition software. It may contain grammatical, syntax o r spelling errors. Electronically signed by: John Fountain M.D. 08/13/2023 2:23 PM
[2023-08-13] MEDS: DOXYCYCLINE HYCLATE 100 MG in DEXTROSE 5% MINI-B 100 ML IV ONE (15:48)
[2023-08-13] MEDS ORDERED: POTASSIUM PHOS 3 MMOL/1 ML INFUSION IV STA (16:38)
[2023-08-13] MEDS ORDERED: CARBOHYDRATES FOR HYPOGLYCEMIA PO PRN (17:06)
[2023-08-13] MEDS ORDERED: ACETAMINOPHEN 325 MG TAB PO PRN (17:06)
[2023-08-13] MEDS ORDERED: GLUCAGON FOR INJ 1 MG VIAL SQ PRN (17:06)
[2023-08-13] MEDS ORDERED: DEXTROSE 50% 50 ML SYRINGE IV PRN (17:06)
[2023-08-13] MEDS ORDERED: ONDANSETRON INJ 2 MG/ML 2 ML VIAL IV PRN (17:06)
[2023-08-13] MEDS ORDERED: GLUCOSE 40% GEL 15 GM TUBE PO PRN (17:06)
[2023-08-13] MEDS ORDERED: GLUCOSE 10 TAB/TUBE PO PRN (17:06)
[2023-08-13] MEDS: INSULIN ASPART PER UNIT CHARGE SC SCH (18:35)
[2023-08-13] MEDS: POT PHOSPHATE MONOBASIC W/ SOD TAB PO SCH (18:39)
[2023-08-13] MEDS: ADVANCED PROBIOTIC 625 MG CAPSULE PO SCH (18:39)
[2023-08-13] MEDS: POTASSIUM CHLORIDE / WTR 10 MEQ/100 ML PLCT IV SCH (18:39)
[2023-08-13] MEDS: POTASSIUM CHLORIDE CRTAB 20 MEQ TABCR PO ONE (18:39)
[2023-08-13] MEDS: guaiFENesin 600 MG TABCR PO SCH (18:40)
[2023-08-13] MEDS: POTASSIUM PHOSPHATE 9 MMOL in SODIUM CHLORIDE 0.9% 250 ML IV ONE (18:40)
[2023-08-13 19:05] LABS: BUN Creatinine Ratio 14.8 (10-20); Calcium 7.4 mg/dl (8.6-10.3); Creatinine Clr Calc Pharmacy 75.4 ml/min; Est GFR (African American) 115.6 ml/min; Est GFR (Non-African American) 99.7 ml/min; Potassium 3.2 mmol/L (3.5-5.1)
[2023-08-13] MEDS: ALBUT/IPRATROP 3MG/0.5MG NEB 3 ML VIAL NEB SCH (20:00)
[2023-08-13 21:02] LABS: Magnesium 2.3 mg/dl (1.7-2.4); Phosphorus 1.7 mg/dl (2.5-4.9)
[2023-08-13] MEDS: DEXTROSE 5% 1,000 ML IV SCH (21:04)
[2023-08-13] MEDS: HEPARIN SOD 5,000 UNIT/0.5 ML VIAL SQ SCH (21:05)
[2023-08-13 22:56] LABS: Thyroid Stimulating Hormone 0.332 uIu/ml (0.300-4.500)
[2023-08-14] MEDS: DOXYCYCLINE HYCLATE 100 MG in DEXTROSE 5% MINI-B 100 ML IV SCH (03:26)
--- OUTSIDE RECORDS SUMMARY | 2023-08-14 07:01 | External Medical Summary | Summary of Care ---
Author Name Unknown Organization [facility] Address [address] [place] [address] Phone [phone] Care Team Providers Care Refinery Operator Reforming Unit Name Role Phone Brayden Painting MD Primary Care Provider [phone] Reason for Visit * Reason Comments Outpatient Testing Encounter Details Date Type Department Care Team (Late st Contact Info) Description 08/04/2023 3:40 PM EDT Laboratory Laboratory, [place] [address] [place] [address] [place] [address] [place] [address] Hematochezia Allergies Active Allergy Reactions Criticality Noted Date Comments Aspirin 01/22/1999 upset stomach Nickel Rash 05/18/2019 documented as of this encounter (statuses as of 08/04/2023) Medications Medication Sig Dispensed Refills Start Date End Date Status Atorvastatin Calcium 10 MG Oral Tablet (Lipitor)Indications :Dyslipidemia, goal LDL below 70 Take 1 Tablet by mouth in the morning. 90 Tablet 3 01/29/2023 Active Fluticasone Propionate 50 MCG/ACT Nasal Suspension (Flonase)Indications :Non-seasonal allergic rhinitis due to other allergic trigger SPRAY 2 SPRAYS INTO EACH NOSTRIL EVERY DAY 48 mL 3 02/23/2023 Active Albuterol Sulfate HFA 108 (90 Base) MCG/ACT Inhalation Aerosol SolutionIndications: Unspecified abnormalities of breathing USE 2 PUFFS EVERY 4 HOURS NEEDED FOR WHEEZINGUSE 2 PUFFS EVERY 4 HOURS NEEDED FOR WHEEZING 18 g 2 05/10/2023 Active Cetirizine HCl 10 MG Oral Tablet (ZyrTEC) Take 1 Tablet by mouth in the morning. 90 Tablet 3 05/14/2023 Active Anoro Ellipta 62.5-25 MCG/ACT Inhalation Aerosol Powder Breath Activated (umeclidinium-vilant bong) Inhale 1 Puff by mouth in the morning. 30 Each 11 05/14/2023 Active guaiFENesin-Codeine 100-10 MG/5ML Oral Syrup (Robitussin AC)Indications:Tobac co use disorder,Bronchitis, complicated Take 5 mL by mouth every 4 hours as needed for Cough. 120 mL 0 05/14/2023 Active Additional Information Patient not taking.Reported on 08/04/2023 Lisinopril 10 MG Oral Tablet (Prinivil)Indication s:HTN, goal below 140/90 Take 1 Tablet by mouth in the morning. 90 Tablet 3 05/28/2023 Active documented as of this encounter (statuses as of 08/04/2023) Active Problems Problem Noted Date Diagnosed Date COPD, moderate 01/29/2023 Dyslipidemia, goal LDL below 100 06/26/2019 Essential hypertension with goal blood pressure less than 140/90 05/24/2019 Allergic rhinitis 02/09/2014 Tobacco use disorder 02/09/2014 Hx of hysterectomy 08/25/2013 Localized, primary osteoarthritis of hand 2003 documented as of this encounter (statuses as of 08/04/2023) Resolved Problems Problem Noted Date Diagnosed Date Resolved Date Sinobronchitis 02/09/2014 02/04/2016 ADVANCE DIRECTIVE INFORMATION 01/08/2005 02/04/2016 Overview: No, Advance Directive brochure offered , patient declined. Polyp of corpus uteri 07/14/20042011 Uterine leiomyoma 07/14/2004 06/10/2011 Simple endometrial hyperplasia without atypia 07/15/19 05 06/10/2011 Tobacco use disorder 02/19/2004 014 Family history of other card iovascular diseases 11/21/2001 02/04/2016 Overview: ICD-10 update of inactive term documented as of this encounter (statuses as of 08/04/2023) Immunizations Name Administration Dates Next Due Pneumococcal Polysaccharide PPV23 (Pneumovax) Seasonal Influenza, Split, IIV3, With Preserve, Inj 05/07/2009 TD, Preservative Free 10/12/2018 TDAP (age 11 and older)(Adacel) 07/12/2008 documented as of this encounter Social History Tobacco Use Types Packs/Day Years Used Date Smoking Tobacco: Every Day Cigarettes 0.5 39 Passive Smoke Exposure: Past Smokeless Tobacco: Never Comments:since age 16 Alcohol Use Standard Drinks/Week Comments Yes 0 (1 standard drink = 0.6 oz pur e alcohol) 6 pack per month PHQ-2 Answer Date Recorded PHQ-2 Score 0 10/12/2018 Sex and Gender Information Value Date Recorded Sex Assigned at Not on file Gender Identity Not on file Sexual Orientation Straight 03/04/2019 11 :29 AM EDT Job Start Date Occupation Industry Not on file Not on file Not on file documented as of this encounter Plan of Treatment Pending Results Name Type Priority Associated Diagnoses Date /Time CBC WITH WBC DIFFERENTIAL Lab Routine Hematochezia 08/04/2023 3:27 PM EDT ERYTHROCYTE SEDIMENTATION RATE (ESR) Lab Routine Hematochezia 08/04/2023 3:27 PM EDT CRP (INFLAMMATORY MARKER) Lab Routine Hematochezia 08/04/2023 3:27 PM EDT CBC Lab Routine Hematochezia 08/04/2023 3:27 PM EDT DIFFERENTIAL, AUTOMATED Lab Routine Hematochezia 08/04/2023 3:27 PM EDT Scheduled Procedures Name Priority Associated Diagnoses Date/Ti me COLONOSCOPY FLEXIBLE PROXIMA L DIAGNOSTIC Recall History of colonic polyps Health Maintenance Due Date Last Done Comments DISCUSS TOBACCO CESSATION (REFER TO SMARTSET #[id number]) 1959 HIV Screening 1974 Albumin/Creatinine Ratio 1977 Alpha-1 Antitrypsin 1977 Hepatitis C Screening 1977 Zoster Vaccines (1 of 2) 2009 Pneumococcal Vaccine: Pediatrics (0 to 5 Years) and At-Risk Patients (6 to 64 Years) (2 of 2 - PCV) 05/07/2010 05/07/2009 Depression Screening 10/13/2019 10/12/2018 Mammogram 12/10/2019 12/09/2018, 02/0 01/2007, 01/30/2003, Additional history exists GFR 05/25/2020 05/25/2019 COVID-19 Vaccine (1 - 3-24 season) 2023 *COPD SEVERITY VERIFIED BY PFT 02/01/2023 Influenza Vaccine (FLU shot) (Season Ended) 2024 05/07/2009 Lipid Panel 05/25/2024 05/25/2019, 05/07/2009 COLONOSCOPY-EVERY 5 YRS AGES 18-100 06/30/2024 06/30/2019, 06/30/2019 O2 ASSESSMENT COMPLETED IN PAST YEAR FOR COPD 08/03/2024 08/04/2023 DTaP,Tdap,and Td Vaccines (3 - Td or Tdap) 10/12/2028 10/12/2018, 07/12/2008, 07/11/1996 GARDASIL-HPV IMMUNIZATION SERIES Aged Out No longer eligible based on patient's age to complete this topic Hepatitis B Aged Out No longer eligi ble based on patient's age to complete this topic MENINGOCOCCAL (MENACTRA/MENVEO) Aged Out No longer eligible based on patient's age to complete this topic documented as of this encounter Medical Devices Not on filedocumented as of this encounter Visit Diagnoses Diagnosis Hematochezia Blood in stool documented in this encounter Care Teams Refinery Operator Reforming Unit Relationship Specialty Start Date End Date Brayden Painting MD [address] [place] [address] PCP - General 06/06/1998 documented as of this encounter
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
--- OUTSIDE RECORDS SUMMARY | 2023-08-14 07:01 | External Medical Summary | Summary of Care ---
Author Name Unknown Organization [facility] Address [address] [place] [facility] [place] [address] Phone [phone] Care Team Providers Care Fuel Buyer Name Role Phone Brayden Painting MD Primary Care Provider [phone] Reason for Referral * Evaluate & Treat - Unlimited Visits (Within 10 days (routine)) - Pending Review Specialty Diagnoses / Procedures Referred By Deena reinoso Referred To Contact Orthopaedic Surgery / Orthopedics Diagnoses Splinter Rudy Urias MD [address] [place] [address] Referral ID Status Reason Start Date Expiration Date Visits Requested Visits Authorized [id number] Pending Review Specialty Services Required 05/28/[phone] Question Answer Referral Priority Within 10 days (routine) Where should this appointment be scheduled? [facility] What body part is the patient being seen for? Hand What condition is the patient being seen for? Wound Reason for Visit * Reason Onset Date Comments Appointment 05/28/2023 Ortho Referral Encounter Details Date Type Department Care Team (Late st Contact Info) Description 05/28/2023 Telephone [facility] [address] [facility] [place] [address] Brayden Painting MD [address] [place] [address] Appointment (Ortho Referral) Allergies Active Allergy Reactions Criticality Noted Date Comments Aspirin 01/22/1999 upset stomach Nickel Rash 05/18/2019 documented as of this encounter (statuses as of 05/28/2023) Medications Medication Sig Dispensed Refills Start Date [...] as of this encounter (statuses as of 05/28/2023) Active Problems Problem Noted Date Diagnosed Date COPD, moderate 01/29/2023 Dyslipidemia, goal LDL below 100 06/26/2019 Essential hypertension with goal blood pressure less than 140/90 05/24/2019 Allergic rhinitis 02/09/2014 Tobacco use disorder 02/09/2014 Hx of hysterectomy 08/25/2013 Localized, primary osteoarthritis of hand 2003 documented as of this encounter (statuses as of 05/28/2023) Resolved Problems Problem Noted Date Diagnosed Date [...] as of this encounter (statuses as of 05/28/2023) Immunizations Name Administration Dates Next Due Pneumococcal [...] on file documented as of this encounter Miscellaneous Notes * Telephone Encounter - Rudy Urias MD - 05/28/2023 2:17 PM EST Please schedule with ortho * Telephone Encounter - Josey Kowalski OSA - 05/28/2023 2:02 PM EST A referral for Gen Surg was placed for patient due to her having a splinter in her finger. I called General Surgery bc it would not allow me to schedule. They state this must be done throughOrthopedics. Please place referral for Ortho and I will call patient to schedule. Thank you. documented in this encounter Plan of Treatment Upcoming Encounters Date Type Department Care Team (Late st Contact Info) Description 07/30/2023 12:00 PM EDT Office Visit [facility] [address] [place] [address] Brayden Painting MD [address] [place] [address] Scheduled Procedures Name Priority Associated Diagnoses Date/Ti me COLONOSCOPY FLEXIBLE PROXIMA L DIAGNOSTIC Recall History of colonic polyps Scheduled Referrals Name Type Priority Associated Diagnoses Order Schedule ORTHOPAEDICS REFERRAL OP Referral Within 10 days (routine) Splinter Ordered: 05/28/2023 Health Maintenance Due Date Last Done Comments DISCUSS TOBACCO CESSATION (REFER TO SMARTSET #[id number]) 1959 COVID-19 Vaccine (#1) 1959 HIV Screening 1974 Albumin/Creatinine Ratio 1977 Alpha-1 Antitrypsin 1977 Hepatitis C Screening 1977 Zoster Vaccines (1 of 2) 2009 Pneumococcal Vaccine: Pediatrics (0 to 5 Years) and At-Risk Patients (6 to 64 Years) (2 - PCV) 05/07/2010 05/07/2009 Depression Screening 10/13/2019 10/12/2018 Mammogram 12/10/2019 12/09/2018, 0201/2007, 01/30/2003, Additional history exists GFR 05/25/2020 05/25/2019 [...] as of this encounter Visit Diagnoses Diagnosis Splinter- Primary Other, multiple, and unspecified sites, superficial foreign body (splinter), without major open wound and without mention of infection documented in this encounter Care Teams Fuel Buyer Relationship Specialty Start Date End Date Brayden Painting MD [address] [place] [address] PCP - General 06/06/1998 documented as of this encounter
--- OUTSIDE RECORDS SUMMARY | 2023-08-14 07:01 | External Medical Summary | Summary of Care ---
Author Name Unknown Organization [facility] Address [address] [place] [address] Phone [phone] Care Team Providers Care Molder Offbearer Name Role Phone Brayden Painting MD Primary Care Provider [phone] Encounter Details Date Type Department Care Team (Late st Contact Info) Description 08/04/2023 Telephone [facility] [address] [place] [address] Brayden Painting MD [address] [place] [address] Allergies Active Allergy Reactions Criticality Noted Date Comments Aspirin 01/22/1999 upset stomach Nickel Rash 05/18/2019 documented as of this encounter (statuses as of 08/05/2023) Medications Medication Sig Dispensed Refills Start Date [...] as of this encounter (statuses as of 08/05/2023) Active Problems Problem Noted Date Diagnosed Date COPD, moderate 01/29/2023 Dyslipidemia, goal LDL below 100 06/26/2019 Essential hypertension with goal blood pressure less than 140/90 05/24/2019 Allergic rhinitis 02/09/2014 Tobacco use disorder 02/09/2014 Hx of hysterectomy 08/25/2013 Localized, primary osteoarthritis of hand 2003 documented as of this encounter (statuses as of 08/05/2023) Resolved Problems Problem Noted Date Diagnosed Date [...] as of this encounter (statuses as of 08/05/2023) Immunizations Name Administration Dates Next Due Pneumococcal [...] encounter Miscellaneous Notes * Telephone Encounter - Gisselle Olivo OSA - 08/05/2023 10:57 AM EDT Marcia'ros 09/14/23. * Telephone Encounter - Leigha Hook Student - 08/04/2023 3:27 PM EDT 08-04-2023 Patient needs to schedule an appointment for a colonoscopy. Would like this done at [facility] Please call patient to schedule appointment. documented in this encounter Plan of Treatment Upcoming Encounters Date Type Department Care Team (Latest Contact Info) Description 09/14/2023 9:30 AM EDT Hospital Encounter ENDO [facility], Endoscopy Room [facility] [address] [place] [phone] Amor Lombardo DO [address] [place] [address] 09/14/2023 9:30 AM EDT - 09/14/2023 10:00 AM EDT Surgery ENDO [facility], Endoscopy Room [facility] [address] [place] [address] Amor Lombardo, DO [address] [place] [address] COLONOSCOPY FLEXIBLE PROXIMAL DIAGNOSTIC Scheduled Procedures Name Priority Associated Diagnoses Date/Ti me COLONOSCOPY FLEXIBLE PROXIMAL DIAGNOSTIC Recall Hematochezia History of colonic polyps 09/14/2023 9:30 AM EDT Health Maintenance Due Date Last Done Comments DISCUSS TOBACCO CESSATION (REFER TO SMARTSET #3963) 1960 HIV Screening 1974 Albumin/Creatinine Ratio 1977 Alpha-1 Antitrypsin 1977 Hepatitis C Screening 1977 Zoster Vaccines (1 of 2) 2009 Pneumococcal Vaccine: Pediatrics (0 to 5 Years) and At-Risk Patients (6 to 64 Years) (2 of 2 - PCV) 05/07/2010 05/07/2009 Depression Screening 10/13/2019 10/12/2018 Mammogram 12/10/2019 12/09/2018, 02/01/2007, 01/30/2003, Additional history exists GFR 05/25/2020 05/25/2019 COVID-19 Vaccine ( season) 2023 *COPD SEVERITY VERIFIED BY PFT [...] Not on filedocumented as of this encounter Care Teams Molder Offbearer Relationship Specialty Start Date End Date Brayden Painting MD [address] [place] [address] PCP - General 06/06/1998 documented as of this encounter
--- OUTSIDE RECORDS SUMMARY | 2023-08-14 07:01 | External Medical Summary | Summary of Care ---
Author Name Unknown Organization [facility] Address [address] [facility] [place] [address] Phone [phone] Care Team Providers Care Database Engineer Name Role Phone Brayden Painting MD Primary Care Provider [phone] Reason for Referral * Evaluate & Treat - Unlimited Visits (Within 10 days (routine)) - Pending Review Specialty Diagnoses / Procedures Referred By Deena reinoso Referred To Contact Orthopaedic Surgery / Orthopedics Diagnoses Splinter Rudy Urias MD [address] [place] [address] Referral ID Status Reason Start Date Expiration Date Visits Requested Visits Authorized [id number] Pending Review Specialty Services Required 05/28/2023 999 [...] (Late st Contact Info) Description 05/28/2023 Telephone [facility] [address] [place] [facility] [place] [address] Brayden Painting MD [address] [place] [address] Appointment (Ortho Referral) Allergies Active [...] Influenza, Split, IIV3, With Preserve, Inj 05/07/2009 TD - Tetanus/Diptheria (ADULT) 07/11/1996 TD, Preservative Free 10/12/2018 TDAP (age 10 [...] encounter Miscellaneous Notes * Telephone Encounter - Josey Kowalski OSA - 05/28/2023 3:33 PM EST Scheduled. 05/28/2023 * Telephone Encounter - Rudy Urias MD [...] 06/07/2023 12:30 PM EST Office Visit [facility] [address] [facility] [place] [address] Leandro Hawkins MD [address] [place] [address] 07/30/2023 12:00 PM EDT Office Visit [facility] [address] [place] [id number] Brayden Painting MD [address] [place] [address] Scheduled Procedures Name Priority Associated Diagnoses Date/Ti me COLONOSCOPY FLEXIBLE PROXIMA L DIAGNOSTIC Recall History of colonic polyps Scheduled Referrals Name Type Priority Associated Diagnoses Order Schedule ORTHOPAEDICS REFERRAL OP Referral Within 10 days (routine) Splinter Ordered: 05/28/2023 Health Maintenance Due Date Last Done Comments DISCUSS TOBACCO CESSATION (REFER TO SMARTSET #[id number]) 1959 COVID-19 Vaccine (#1) 1959 HIV Screening [...] infection documented in this encounter Care Teams Database Engineer Relationship Specialty Start Date End Date Brayden Painting MD [address] [place] [address] PCP - General 06/06/1998 documented as of this encounter
--- OUTSIDE RECORDS SUMMARY | 2023-08-14 07:01 | External Medical Summary ---
Author Name Unknown Address Unknown Organization K[facility] [place] [address] [facility] [place] [address] Laboratory Report Ordering Provider Test Date Status JUAN MIGUEL LAWRENCE 08/04/2023 15:27:14 Final Observation Date Value Abnormality Reference (Units ) Status SYNC LEUKOCYTES IN BLOOD BY AUTOMATED COUNT 08/04/2023 15:27:14 12.11 Above high normal 4.00-10.80 (K/uL) Final Segs 08/04/2023 15:27:14 80.6 Above high normal 40.0-75.0 (%) Final Lymphs % 08/04/2023 15:27:14 10.2 Below low normal 18.0-42.0 (%) Final Monos 08/04/2023 15:27:14 8.2 1.0-11.0 (%) Final Eosinophils 08/04/2023 15:27:14 0.2 0.0-6.0 (%) Final Basos 08/04/2023 15:27:14 0.3 0.0-2.0 (%) Final Immature Granulocyte, Percent 08/04/2023 15:27:14 0.5 0.0-2.0 (%) Final Absolute Segs 08/04/2023 15:27:14 9.77 Above high normal 1.80-7.70 (K/uL) Final Lymphs, absolute 08/04/2023 15:27:14 1.23 1.00-4.80 (K/ul) Final Monos, Abs 08/04/2023 15:27:14 0.99 0.00-1.10 (K/uL) Final Eos, Abs 08/04/2023 15:27:14 0.02 0.00-0.70 (K/uL) Final Basos, Abs 08/04/2023 15:27:14 0.04 0.00-0.20 (K/uL) Final Immature Granulocytes, Number 08/04/2023 15:27:14 0.06 0.00-0.20 (K/uL) Final Performing Location [facility] [place] [facility] [place] [address]
--- OUTSIDE RECORDS SUMMARY | 2023-08-14 07:01 | External Medical Summary | Summary of Care ---
Author Name Unknown Organization [facility] Address [address] [place] [address] Phone [phone] Care Team Providers Care Melter Clerk Name Role Phone Brayden Painting MD Primary Care Provider [phone] Reason for Referral * Medication Prior Authorization - Closed Specialty Diagnoses / Procedures Referred By Contac t Referred To Contact Diagnoses Tobacco use disorder Bronchitis, complicated Rudy Urias MD [address] [place] [address] Referral ID Status Reason Start Date Expiration Date Visits Re quested Visits Authorized [id number] Closed 999 999 Reason for Visit * Reason Comments Acute Sinus infection and cough Encounter Details Date Type Department Care Team (Late st Contact Info) Description 05/14/2023 1:40 PM EST Office Visit [facility] [address] [place] [address] Rudy Urias MD [address] [place] [address] Bronchitis, complicated*; COPD, moderate (HCC); Non-seasonal allergic rhinitis due to other allergic trigger; Tobacco use disorder; Essential hypertension with goal blood pressure less than 140/90; Chronic sinusitis, unspecified location; Ear infection Allergies Active Allergy Reactions Criticality Noted Date Comments Aspirin 01/22/1999 upset stomach Nickel Rash 05/18/2019 documented as of this encounter (statuses as of 05/14/2023) Medications Medication Sig Dispensed Refills Start Date End Date Status Lisinopril 10 MG Oral Tablet (Prinivil)Indicati ons:HTN, goal below 140/90 Take 1 Tablet by mouth in the morning. 90 Tablet 3 01/29/2023 Active Atorvastatin Calcium 10 MG Oral Tablet (Lipitor)Indicatio ns:Dyslipidemia, goal LDL below 70 Take 1 Tablet by mouth in the morning. 90 Tablet 3 01/29/2023 Active Fluticasone Propionate 50 MCG/ACT Nasal Suspension (Flonase)Indicatio ns:Non-seasonal allergic rhinitis due to other allergic trigger SPRAY 2 SPRAYS INTO EACH NOSTRIL EVERY DAY 48 mL 3 02/23/2023 Active Albuterol Sulfate HFA 108 (90 Base) MCG/ACT Inhalation Aerosol SolutionIndication s:Unspecified abnormalities of breathing USE 2 PUFFS EVERY 4 HOURS NEEDED FOR WHEEZINGUSE 2 PUFFS EVERY 4 HOURS NEEDED FOR WHEEZING 18 g 2 05/10/2023 Active Cetirizine HCl 10 MG Oral Tablet (ZyrTEC) Take 1 Tablet by mouth in the morning. 90 Tablet 3 05/14/2023 Active Anoro Ellipta 62.5-25 MCG/ACT Inhalation Aerosol Powder Breath Activated (umeclidinium-royal nterol) Inhale 1 Puff by mouth in the morning. 30 Each 11 05/14/2023 Active Amoxicillin-Pot Clavulanate 875-125 MG Oral Tablet (Augmentin) Take 1 Tablet by mouth in the morning and 1 Tablet before bedtime. Do all this for 10 days. 20 Tablet 0 05/14/2023 4 Active guaiFENesin-Codein e 100-10 MG/5ML Oral Syrup (Robitussin AC)Indications:Tob acco use disorder,Bronchiti s, complicated Take 5 mL by mouth every 4 hours as needed for Cough. 120 mL 0 05/14/2023 Active guaiFENesin-Codein e 100-10 MG/5ML Oral Syrup (Robitussin AC)Indications:Bro nchitis, complicated,Tobacc o use disorder Take 5 mL by mouth every 4 hours as needed for Cough. 120 mL 0 04/03/2021 4 Discontinu ed(Refill) Trelegy Ellipta 100-62.5-25 MCG/ACT Aerosol Powder Breath Activated (Fluticasone-Umecl idinium-Vilanterol ) Inhale 1 Puff by mouth in the morning. 60 Blister Dosing Unit 11 01/29/2023 4 Discontinu ed(Patient preference /discontin uation) documented as of this encounter (statuses as of 05/14/2023) Active Problems Problem Noted Date Diagnosed Date COPD, moderate 01/29/2023 Dyslipidemia, goal LDL below 100 06/26/2019 Essential hypertension with goal blood pressure less than 140/90 05/24/2019 Allergic rhinitis 02/09/2014 Tobacco use disorder 02/09/2014 Hx of hysterectomy 08/25/2013 Localized, primary osteoarthritis of hand 2003 documented as of this encounter (statuses as of 05/14/2023) Resolved Problems Problem Noted Date Diagnosed Date [...] as of this encounter (statuses as of 05/14/2023) Immunizations Name Administration Dates Next Due Pneumococcal [...] on file documented as of this encounter Last Filed Vital Signs Vital Sign Reading Time Taken Comments Blood Pressure 148/72 05/14/2023 1:41 PM EST Pulse 71 05/14/2023 1:41 PM EST Temperature 37 C (98.6 F) 05/14/2023 1:41 PM EST Respiratory Rate 16 05/14/2023 1:41 PM EST Oxygen Saturation 97% 05/14/2023 1:41 PM EST Inhaled Oxygen Concentration - - Weight 44 kg (97 lb) 05/14/2023 1:41 PM EST Height - - Body Mass Index 19.26 01/29/2023 11:40 AM EDT documented in this encounter Patient Instructions * Patient Instructions* Rudy Urias MD - 05/14/2023 1:56 PM EST Lisinopril 20 mg daily for BP documented in this encounter Progress Notes * Rudy Urias MD - 05/14/2023 2:54 PM EST Subjective Macrina Worthington is a 63 year old female. Chief Complaint Patient presents with Acute Sinus infection and cough HPI: Here for progressing sinus infection and cough Not able to sleep Known COPD< had tried trelegy but caused sore throat Will try anoro inhaler Cut down smoking 2 cig per day from one pack Didn't take sinus allergy med recently Has flonase Will add zyrtec HTN, BP high, taking lisinopril , will increase dose to 20 mg PMH: Patient Active Problem List Diagnosis Code Localized, primary osteoarthritis of hand M19.049 Hx of hysterectomy Z90.710 Allergic rhinitis J30.9 Tobacco use disorder F17.200 Essential hypertension with goal blood pressure less than 140/90 I10 Dyslipidemia, goal LDL below 100 E78.5 COPD, moderate (HCC) J44.9 Current Outpatient Medications Medication Sig Dispense Refill Lisinopril 10 MG Oral Tablet (Prinivil) Take 1 Tablet by mouth in the morning. 90 Tablet 3 Atorvastatin Calcium 10 MG Oral Tablet (Lipitor) [...] mouth in the morning. 30 Each 11 Amoxicillin-Pot Clavulanate 875-125 MG Oral Tablet (Augmentin) Take 1 Tablet by mouth in the morning and 1 Tablet before bedtime. Do all this for 10 days. 20 Tablet 0 guaiFENesin-Codeine 100-10 MG/5ML Oral Syrup (Robitussin AC) Take 5 mL by mouth every 4 hours as needed for Cough. 120 mL 0 No current facility-administered medications for this visit. Past Medical History: Diagnosis Date Allergic rhinitis Localized, primary osteoarthritis of hand Lump or mass in breast simple cyst on US Simple endometrial hyperplasia without atypia 07/14/2004 Past Surgical History: Procedure Laterality Date DELIVERY x 3 COLONOSCOPY, DIAGNOSTIC (RECTUM) 06/30/2019 sigmoid diverticulosis/internal hemorrhoids/biopsies show adenomatous and hyperplastic polyps/recall 5 years/COLONOSCOPY FLEXIBLE PROXIMAL DIAGNOSTIC performed by Spring Kolb MD at [facility] LIGATE/CUT OVIDUCT(S) TOTAL ABD HYSTERECTOMY W/WO REMOVAL OF TUBE(S) 2006 around has ovaries. Review of patient's allergies indicates: Allergen Reactions Aspirin upset stomach Nickel Rash Family History Problem Relation Age of Onset Heart Disorder Grandfather (Paternal) OR Heart Disorder Aunt (Unspecified) OR Cancer Aunt (Unspecified) Lung Cancer Mother cervical tumor Heart Disorder Uncle (Unspecified) OR Gastro-intestinal disorder Uncle (Unspecified) Crohn's Other (Other) Other no breast/ovarian/colon cancer Family Status Relation Status Fa Alive Mo [place] Alive [place] Alive Son Alive Sis Alive Bro Alive Sis Alive Sis Alive Bro Alive PGFA (Not Specified) AUNT (Not Specified) UNCLE (Not Specified) Other (Not Specified) AUNT (Not Specified) AUNT (Not Specified) UNCLE (Not Specified) UNCLE (Not Specified) Other (Not Specified) Social History Socioeconomic History Marital status: Spouse name: Flaco-4 yrs Number of children: 3 Years of education: Not on file Highest education level: Not on file Occupational History 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 Occupational Exposure Not Asked Hobby Hazards Not Asked Sleep Concern Not Asked Stress Concern Not Asked Weight Concern Not Asked Special Diet Not Asked Back Care Not Asked Exercise Not Asked Bike Helmet Not Asked Seat Belt Not Asked Self-Exams Yes Comment: breast Social History Narrative Not on file Social Determinants of Health Financial Resource Strain: Not on file Food Insecurity: Not on file Transportation Needs: Not on file Physical Activity: Not on file Stress: Not on file Social Connections: Not on file Intimate Partner Violence: Not on file Housing Stability: Not on file Review of Systems Constitutional: Positive for activity change, appetite change and fatigue. Negative for chills, diaphoresis, fever and unexpected weight change. HENT: Positive for congestion, postnasal drip, sinus pressure, sinus pain, sore throat and tinnitus. Negative for ear pain, rhinorrhea and sneezing. Eyes: Negative for visual disturbance. Respiratory: Positive for cough and chest tightness. Negative for shortness of breath and wheezing. Cardiovascular: Negative for chest pain, palpitations and leg swelling. Gastrointestinal: Negative for abdominal distention and abdominal pain. Endocrine: Negative. Allergic/Immunologic: Positive for environmental allergies. Neurological: Positive for headaches. Negative for dizziness and light-headedness. Psychiatric/Behavioral: Positive for sleep disturbance. Negative for agitation and behavioral problems. The patient is nervous/anxious. Objective BP 148/72 | Pulse 71 | Temp 37 C (98.6 F) (Infrared ) | Resp 16 | Wt 44 kg (97 lb) | LMP 02/27/2005 | SpO2 97% | BMI 19.26 kg/m | BSA 1.36 m Physical Exam Constitutional: General: She is not in acute distress. Appearance: Normal appearance. She is ill-appearing. She is not toxic-appearing or diaphoretic. HENT: Head: Normocephalic and atraumatic. Ears: Comments: Fluid cloudy, bugling TMs Nose: Congestion present. Cardiovascular: Rate and Rhythm: Normal rate and regular rhythm. Pulses: Normal pulses. Heart sounds: Normal heart sounds. Pulmonary: Effort: Pulmonary effort is normal. No respiratory distress. Breath sounds: No stridor. Rhonchi present. No wheezing or rales. Chest: Chest wall: No tenderness. Musculoskeletal: Right lower leg: No edema. Left lower leg: No edema. Neurological: Mental Status: She is alert and oriented to person, place, and time. Psychiatric: Behavior: Behavior normal. Comments: Anxiety ASSESSMENT/PLAN: Bronchitis, complicated (Primary) - RETURN TO WORK OR SCHOOL - guaiFENesin-Codeine 100-10 MG/5ML Oral Syrup (Robitussin AC); Take 5 mL by mouth every 4 hours asneeded for Cough. COPD, moderate (HCC) - RETURN TO WORK OR SCHOOL Non-seasonal allergic rhinitis due to other allergic trigger Tobacco use disorder - guaiFENesin-Codeine 100-10 MG/5ML Oral Syrup (Robitussin AC); Take 5 mL by mouth every 4 hours asneeded for Cough. Essential hypertension with goal blood pressure less than 140/90 Chronic sinusitis, unspecified location - RETURN TO WORK OR SCHOOL Ear infection - RETURN TO WORK OR SCHOOL Other orders - Cetirizine HCl 10 MG Oral Tablet (ZyrTEC); Take 1 Tablet by mouth in the morning. - Anoro Ellipta 62.5-25 MCG/ACT Inhalation Aerosol Powder Breath Activated (umeclidinium-vilanterol); Inhale 1 Puff by mouth in the morning. - Amoxicillin-Pot Clavulanate 875-125 MG Oral Tablet (Augmentin); Take 1 Tablet by mouth in the morning and 1 Tablet before bedtime. Do all this for 10 days. Follow Up: Return in about 2 weeks (around 05/28/2023) for Clinic Visit. | For: Clinic Visit Augmentin Anoro, Zyrtec daily Flonase Cough syrup Hydration enough Increase lisinopril to 20 mg Rudy Urias MD documented in this encounter Nursing Notes * Hellen Ruffin LPN - 05/14/2023 1:39 PM EST Chief Complaint Patient presents with Acute Sinus infection and cough documented in this encounter Plan of Treatment Upcoming Encounters Date Type Department Care Team (Late st Contact Info) Description 05/28/2023 1:40 PM EST Office Visit [facility] [address] [place] [address] Rudy Urias MD [address] [place] [address] 07/30/2023 12:00 PM EDT Office Visit [facility] [address] [place] [address] Brayden Painting MD [address] [place] [address] Scheduled Procedures Name Priority Associated Diagnoses Date/Ti me COLONOSCOPY FLEXIBLE PROXIMA L DIAGNOSTIC Recall History of colonic polyps Health Maintenance Due Date Last Done Comments DISCUSS TOBACCO CESSATION (REFER TO SMARTSET #2801) 1959 COVID-19 Vaccine (#1) 1959 HIV Screening 1974 Albumin/Creatinine Ratio 1977 Alpha-1 Antitrypsin 1977 Hepatitis C Screening 1977 Zoster Vaccines (1 of 2) 2009 Pneumococcal Vaccine: Pediatrics (0 to 5 Years) and At-Risk Patients (6 to 64 Years) (2 - PCV) 05/07/2010 05/07/2009 Depression Screening 10/13/2019 10/12/2018 Mammogram 12/10/2019 12/09/2018, 01/2007, 01/30/2003, Additional history exists GFR 05/25/2020 05/25/2019 Influenza Vaccine (FLU shot) (#1) 2023 05/07/2009 *COPD SEVERITY VERIFIED BY PFT 02/01/2023 O2 ASSESSMENT COMPLETED IN PAST YEAR FOR COPD 01/30/2024 01/29/2023 Lipid Panel 05/25/2024 05/25/2019, 05/07/2009 COLONOSCOPY-EVERY 5 [...] as of this encounter Visit Diagnoses Diagnosis Bronchitis, complicated- Primary Bronchitis, not specified as acute or chronic COPD, moderate (HCC) Chronic airway obstruction, not elsewhere classified Non-seasonal allergic rhinitis due to other allergic trigger Tobacco use disorder Essential hypertension with goal blood pressure less than 140/90 Chronic sinusitis, unspecified location Ear infection Unspecified otitis media documented in this encounter Care Teams Melter Clerk Relationship Specialty Start Date End Date Brayden Painting MD [address] [place] [address] PCP - General 06/06/1998 documented as of this encounter"
--- OUTSIDE RECORDS SUMMARY | 2023-08-14 07:01 | External Medical Summary ---
Author Name Unknown Address Unknown Organization [id number]:[facility] [place] [address] [place] [address] Laboratory Report Ordering Provider Test Date Status JUAN MIGUEL LAWRENCE 08/04/2023 15:27:14 Final Observation Date Value Abnormality Reference (Units ) Status Erythrocyte sedimentation rate by Photometric method 08/04/2023 15:27:14 11 <30 (mm/hour) Final Performing Location [facility] [place] [address] [place] [address]
--- OUTSIDE RECORDS SUMMARY | 2023-08-14 07:01 | External Medical Summary ---
Author Name Unknown Address Unknown Organization [id number]:[facility] [place] - [address] [facility] [address] Laboratory Report Ordering Provider Test Date Status JUAN MIGUEL LAWRENCE 08/04/2023 15:27:14 Final Observation Date Value Abnormality Reference (Units ) Status WBC, Total 08/04/2023 15:27:14 12.11 Above high normal 4.00-10.80 (K/uL) Final RBC 08/04/2023 15:27:14 4.48 3.85-5.15 (M/uL) Final Hemoglobin 08/04/2023 15:27:14 15.0 12.0-15.3 (g/dL) Final HCT 08/04/2023 15:27:14 45.0 36.0-45.2 (%) Final MCV 08/04/2023 15:27:14 100.4 81.5-97.5 (fL) Final MCH 08/04/2023 15:27:14 33.5 27.0-34.0 (pg) Final MCHC 08/04/2023 15:27:14 33.3 32.0-36.0 (g/dL) Final RDW 08/04/2023 15:27:14 12.9 11.5-15.5 (%) Final Platelets 08/04/2023 15:27:14 214 140-400 (K/uL) Final MPV 08/04/2023 15:27:14 10.8 6.6-11.1 (fL) Final Nucleated erythrocytes/100 leukocytes [Ratio] in Blood by Automated count 08/04/2023 15:27:14 0 <=0 (/100 WBCs) Final Performing Location [facility] [place] - [address] [place] [address]
--- OUTSIDE RECORDS SUMMARY | 2023-08-14 07:01 | External Medical Summary | Summary of Care ---
Author Name Unknown Organization [facility] Address [address] [place] [address] Phone [phone] Care Team Providers Care Embedded Software Developer Name Role Phone Brayden Painting MD Primary Care Provider [phone] Reason for Referral * Ancillary Services (Within 30 days (routine)) - Pending Review Specialty Diagnoses / Procedures Referred By Deena reinoso Referred To Contact Gastroenterology Diagnoses Hematochezia Brayden Painting MD [address] [place] [address] Referral ID Status Reason Start Date Expiration Date Visits Requested Visits Authorized [id number] Pending Review Ancillary Services Required 08/04/[phone] Question Answer Referral Priority Within 30 days (routine) Where should this appointment be scheduled? [facility] Comments ALERT: Do not order for pediatric patients (18 years or younger). Cancel off screen and order PEDS GASTROENTEROLOGY CONSULT (Type: 1 visit only-Evaluate and Treat) The following Pt. Instructions are available: - Gastro Colonoscopy Prep Instructions [62819] - Gastro Colonoscopy Prep Instructions (Ukrainian Version) [24382] Go to the Pt. Instructions section within the Visit Navigator to access. Colonoscopy ASGE Guidelines: Hematochezia and Average risk screening (begin at age 50, 10 year intervals) ADDITIONAL INFORMATION 1. Is the patient on Coumadin? No 2. Is the patient on Pradaxa? No Reason for Visit * Reason Comments Acute Patient is here due to upset stomach possibly due to eating bad foodPatient states it feels like her guts are burningPatient states this started Wednesday at 7 pm, she was on the toilet tried to get up and felt dizzy and fellPatient states she has fever and chills Patient states she has not taken anything for the pain Paient states she is passing mucusy bloody clotsPatient states she ate cream of wheat this morning and was able to keep it down Patient states she has had blood come out Encounter Details Date Type Department Care Team (Late st Contact Info) Description 08/04/2023 2:40 PM EDT Office Visit [facility] [address] [place] [address] Brayden Painting MD [address] [place] [address] Food poisoning due to bacteria*; Special screening examination for viral disease; Essential hypertension with goal blood pressure less than 140/90; COPD, moderate (HCC); Need for hepatitis C screening test; Screen for colon cancer; Hematochezia Allergies Active Allergy Reactions Criticality Noted [...] Sign Reading Time Taken Comments Blood Pressure 106/62 08/04/2023 2:28 PM EDT Pulse 104 08/04/2023 2:28 PM EDT Temperature 35.8 C (96.4 F) 08/04/2023 2:28 PM ED T Respiratory Rate 16 08/04/2023 2:28 PM EDT Oxygen Saturation 96% 08/04/2023 2:28 PM EDT Inhaled Oxygen Concentration - - Weight 46.1 kg (101 lb 9.6 oz) 08/04/2023 2:28 P M EDT Height - - Body Mass Index 20.18 01/29/2023 11:40 AM EDT documented in this encounter Progress Notes * Brayden Painting MD - 08/04/2023 2:45 PM EDT Subjective: Macrina Worthington is a 63 year old female. Chief Complaint Patient presents with Acute Patient is here due to upset stomach possibly due to eating bad food Patient states it feels like her guts are burning Patient states this started Wednesday at 7 pm, she was on the toilet tried to get up and felt dizzy and fell Patient states she has fever and chills Patient states she has not taken anything for the pain Paient states she is passing mucusy bloody clots Patient states she ate cream of wheat this morning and was able to keep it down Patient states she has had blood come out HPI: 63-year-old is seen today because of passing blood per rectum. She believes that this all was a consequence of eating chicken salad that she bought a local [employer] store. Within about 30 minutes ofeating the food she developed crampy abdominal pain and started passing bright red blood. She notesthat there was little to no stool in that the only thing the might have been solid appeared to be blood clots. At about the same time she would also developed fever and achiness in shakiness. This all occurred on 08/02/2023 in the evening. She did past what appeared to be blood per rectum on for 2 and just a very tiny amount today for 324. She has not been aware of fever after that initial onset.She has not had bleeding elsewhere. She no longer has abdominal crampy pain but she does feel a lotof gurgling diffusely. She has not had a bowel movement since a.m. of 08/02/2023. She has not been eating anything solid but rather just drinking. She has not aware of anybody else that Um has been sick. She lives alone. The weekend before all of her symptoms started she was visiting her son in [facility].. She actually drove back from [place] on the same day for 124 that her symptoms started. She had a routine colonoscopy 4 years ago with findings of an adenomatous polyp in a small hyperplastic polyp. Repeat colonoscopy was recommended 5 years Patient Active Problem List Diagnosis Code Localized, [...] mouth in the morning. 30 Each 11 Lisinopril 10 MG Oral Tablet (Prinivil) Take 1 Tablet by mouth in the morning. 90 Tablet 3 guaiFENesin-Codeine 100-10 MG/5ML Oral Syrup (Robitussin AC) Take 5 mL by mouth every 4 hours as needed for Cough. (Patient not taking: Reported on 08/04/2023) 120 mL 0 No current facility-administered medications for this visit. Review of patient's allergies indicates: Allergen Reactions Aspirin upset stomach Nickel Rash Objective: BP 106/62 | Pulse 104 | Temp 35.8 C (96.4 F) (Temporal Artery) | Resp 16 | Wt 46.1 kg (101 lb 9.6 oz) | LMP 02/27/2005 | SpO2 96% | BMI 20.18 kg/m | BSA 1.39 m Physical Exam: CONST: alert, pleasant, no acute distress HEAD: normocephalic, atraumatic Eyes - PERRLA, EOM'I OROPHARYNX: clear, no swelling or erythema, moist CV: regular rate and rhythm, no murmur CHEST: clear to auscultation bilaterally, no rales or wheezing ABD: Slight tenderness diffusely a little bit more so in the periumbilical area and very high epigastric area. EXT: no edema, no joint swelling or deformities, ASSESSMENT/PLAN: Food poisoning due to bacteria (Primary) - RETURN TO WORK OR SCHOOL -she has given a work excuse for 08/03, , . She plans tentatively to return to work on Wednesday08/09/2023. No sense in doing any stool testing as she really has not passed stool since onset of the hematochezia. Essential hypertension with goal blood pressure less than 140/90-her blood pressure is okay today. Her heart rates elevated but that is probably because of some Um mild volume depletion. Hematochezia - COLONOSCOPY, GI REFERRAL OP-if she has ongoing symptoms including more severe hematochezia or pain or fever or if her inflammatory markers are significantly elevated, will push to get the colonoscopy quicker. Otherwise Um should just be scheduled routinely - CBC WITH WBC DIFFERENTIAL; Future; Expected date: 08/04/2023 - ERYTHROCYTE SEDIMENTATION RATE (ESR); Future; Expected date: 08/04/2023 - CRP (INFLAMMATORY MARKER); Future; Expected date: 08/04/2023 Brayden Painting MD documented in this encounter Nursing Notes * [place] Student - 08/04/2023 2:32 PM EDT The patient has been properly identified by confirmation of name and date of . Chief Complaint Patient presents with Acute Patient is here due to upset stomach possibly due to eating bad food Patient states it feels like her guts are burning Patient states this started Wednesday at 7 pm, she was on the toilet tried to get up and felt dizzy and fell Patient states she has fever and chills Patient states she has not taken anything for the pain Paient states she is passing mucusy bloody clots Patient states she ate cream of wheat this morning and was able to keep it down Patient states she has had blood come out documented in this encounter Plan of Treatment Upcoming Encounters Date Type Department Care Team (Late st Contact Info) Description 08/04/2023 3:40 PM EDT Laboratory Laboratory, [facility] [address] [place] [address] [facility] [address] [place] [address] Hematochezia Pending Results Name Type Priority Associated Diagnoses Date /Time CBC WITH WBC DIFFERENTIAL Lab Routine Hematochezia 08/04/2023 3:27 PM EDT ERYTHROCYTE SEDIMENTATION RATE (ESR) Lab Routine Hematochezia 08/04/2023 3:27 PM EDT CRP (INFLAMMATORY MARKER) Lab Routine Hematochezia 08/04/2023 3:27 PM EDT Scheduled Orders Name Type Priority Associated Diagnoses Orde r Schedule CBC WITH WBC DIFFERENTIAL Lab Routine Hematochezia Expected: 08/04/2023 (Approximate), Expires: 08/03/2024 ERYTHROCYTE SEDIMENTATION RATE (ESR) Lab Routine Hematochezia Expected: 08/04/2023 (Approximate), Expires: 08/03/2024 CRP (INFLAMMATORY MARKER) Lab Routine Hematochezia Expected: 08/04/2023 (Approximate), Expires: 08/03/2024 Scheduled Procedures Name Priority Associated Diagnoses Date/Ti me COLONOSCOPY FLEXIBLE PROXIMA L DIAGNOSTIC Recall History of colonic polyps Scheduled Referrals Name Type Priority Associated Diagnoses Orde r Schedule COLONOSCOPY, GI REFERRAL OP Referral Within 30 days (routine) Hematochezia Ordered: 08/04/2023 Health Maintenance Due Date Last Done Comments DISCUSS TOBACCO CESSATION (REFER TO SMARTSET #6872) 1959 HIV Screening 1974 Albumin/Creatinine Ratio 1977 [...] 2024 05/07/2009 Lipid Panel 05/25/2024 05/25/2019, 05/07/2009 O2 ASSESSMENT [...] as of this encounter Visit Diagnoses Diagnosis Food poisoning due to bacteria- Primary Food poisoning, unspecified Special screening examination for viral disease Special screening examination for unspecified viral disease Essential hypertension with goal blood pressure less than 140/90 COPD, moderate (HCC) Chronic airway obstruction, not elsewhere classified Need for hepatitis C screening test Special screening examination for other specified viral diseases Screen for colon cancer Special screening for malignant neoplasms, colon Hematochezia Blood in stool Hematochezia Blood in stool documented in this encounter Care Teams Embedded Software Developer Relationship Specialty Start Date End Date Brayden Painting MD [address] [place] [address] PCP - General 06/06/1998 documented as of this encounter"
--- OUTSIDE RECORDS SUMMARY | 2023-08-14 07:01 | External Medical Summary | Summary of Care ---
Author Name Unknown Organization [facility] Address [address] [place] [address] Phone [phone] Care Team Providers Care Rug Setter Velvet Name Role Phone Brayden Painting MD Primary Care Provider [phone] Reason for Referral * Evaluate & Treat - Unlimited Visits (Within 10 days (routine)) - Pending Review Specialty Diagnoses / Procedures Referred By Contprudencio t Referred To Contact General Surgery Diagnoses Splinter of finger Rudy Urias MD [address] [place] [address] Referral ID Status Reason Start Date Expiration Date Visits Requested Visits Authorized [id number] Pending Review Specialty Services Required 05/28/[phone] Question Answer Referral Priority Within 10 days (routine) Where should this appointment be scheduled? [facility] What condition is the patient being seen for? General Surgery Conditions What condition is the patient being seen for? All other conditions Comments Lt index finger splinter Reason for Visit * Reason Comments Follow Up Follow upPt needs a splitter removed from pointer finger on left handPlease verify blood pressure medication dose Encounter Details Date Type Department Care Team (Late st Contact Info) Description 05/28/2023 1:40 PM EST Office Visit [facility] [address] [place] [facility] [place] [address] Rudy Urias MD [address] [place] [facility] [place] [address] COPD, moderate (HCC)*; HTN, goal below 140/90; Tobacco use disorder; Splinter of finger Allergies Active Allergy Reactions Criticality Noted Date Comments Aspirin 01/22/1999 upset stomach Nickel Rash 05/18/2019 documented as of this encounter (statuses as of 05/28/2023) Medications Medication Sig Dispensed Refills Start Date End Date Status Atorvastatin Calcium 10 MG Oral Tablet (Lipitor)Indication s:Dyslipidemia, goal LDL below 70 Take 1 Tablet by mouth in the morning. 90 Tablet 3 01/29/2023 Active Fluticasone Propionate 50 MCG/ACT Nasal Suspension (Flonase)Indication s:Non-seasonal allergic rhinitis due to other allergic trigger SPRAY 2 SPRAYS INTO EACH NOSTRIL EVERY DAY 48 mL 3 02/23/2023 Active Albuterol Sulfate HFA 108 (90 Base) MCG/ACT Inhalation Aerosol SolutionIndications :Unspecified abnormalities of breathing USE 2 PUFFS EVERY 4 HOURS NEEDED FOR WHEEZINGUSE 2 PUFFS EVERY 4 HOURS NEEDED FOR WHEEZING 18 g 2 05/10/2023 Active Cetirizine HCl 10 MG Oral Tablet (ZyrTEC) Take 1 Tablet by mouth in the morning. 90 Tablet 3 05/14/2023 Active Anoro Ellipta 62.5-25 MCG/ACT Inhalation Aerosol Powder Breath Activated (umeclidinium-vilan terol) Inhale 1 Puff by mouth in the morning. 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 120 mL 0 05/14/2023 Active Lisinopril 10 MG Oral Tablet (Prinivil)Indicatio ns:HTN, goal below 140/90 Take 1 Tablet by mouth in the morning. 90 Tablet 3 05/28/2023 Active Lisinopril 10 MG Oral Tablet (Prinivil)Indicatio ns:HTN, goal below 140/90 Take 1 Tablet by mouth in the morning. 90 Tablet 3 01/29/2023 Discontinue d(Refill) documented as of this encounter (statuses as [...] Sign Reading Time Taken Comments Blood Pressure 102/62 05/28/2023 1:31 PM EST Pulse 81 05/28/2023 1:31 PM EST Temperature 36.1 C (96.9 F) 05/28/2023 1:31 PM ES T Respiratory Rate 16 05/28/2023 1:31 PM EST Oxygen Saturation 96% 05/28/2023 1:31 PM EST Inhaled Oxygen Concentration - - Weight 44.1 kg (97 lb 3.2 oz) 05/28/2023 1:31 PM EST Height - - Body Mass Index 19.3 01/29/2023 11:40 AM EDT documented in this encounter Patient Instructions * Patient Instructions* Rudy Urias MD - 05/28/2023 1:46 PM EST Spiriva Or incruse documented in this encounter Progress Notes * Rudy Urias MD - 05/28/2023 2:02 PM EST Subjective Macrina Worthington is a 63 year old female. Chief Complaint Patient presents with Follow Up Follow up Pt needs a splitter removed from pointer finger on left hand Please verify blood pressure medication dose HPI: Here for 2 wks f/u on bronchitis with COPD Finished ABx, steroid Feels better, and cut down smoking , 4 cig per day Also picked up anoro but didn't start it yet It was $90 , will try to find cheaper one Smoking cessation - emphasized again HTN , took lisinopril 20 mg but currently BP is running low side Will go back to 10 mg daily And also got a wood splinter on lt index finger tip She tried to dig out but couldn't get it out Small wound scab No infection sign currently PMH: Patient Active Problem List Diagnosis Code [...] performed by Spring Kolb MD at [facility] LIGATE/CUT OVIDUCT(S) TOTAL ABD HYSTERECTOMY W/WO REMOVAL OF TUBE(S) 2007 around has ovaries. 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 Negative for appetite change, chills, diaphoresis, fever and unexpected weight change. Respiratory: Positive for cough and shortness of breath (on exertion). Negative for chest tightnessand wheezing. Cardiovascular: Negative for chest pain, palpitations and leg swelling. Gastrointestinal: Negative for abdominal distention and abdominal pain. Skin: Positive for wound (lt finger, index tip). Neurological: Negative for dizziness, light-headedness and headaches. Psychiatric/Behavioral: Negative for agitation and behavioral problems. Objective BP 102/62 | Pulse 81 | Temp 36.1 C (96.9 F) (Infrared ) | Resp 16 | Wt 44.1 kg (97 lb 3.2 oz) |LMP 02/27/2005 | SpO2 96% | BMI 19.30 kg/m | BSA 1.36 m Physical Exam Constitutional: General: She is not in acute distress. Appearance: Normal appearance. She is not ill-appearing, toxic-appearing or diaphoretic. HENT: Head: Normocephalic and atraumatic. Eyes: Extraocular Movements: Extraocular movements intact. Cardiovascular: Rate and Rhythm: Normal rate and regular rhythm. Pulses: Normal pulses. Heart sounds: Normal heart sounds. Pulmonary: Effort: Pulmonary effort is normal. No respiratory distress. Breath sounds: No stridor. Rhonchi present. No wheezing or rales. Comments: B/L decreased BS Chest: Chest wall: No tenderness. Musculoskeletal: General: Tenderness (lt index finer tip) present. Skin: Findings: Lesion present. Neurological: Mental Status: She is alert and oriented to person, place, and time. Psychiatric: Behavior: Behavior normal. ASSESSMENT/PLAN: COPD, moderate (HCC) (Primary) HTN, goal below 140/90 - Lisinopril 10 MG Oral Tablet (Prinivil); Take 1 Tablet by mouth in the morning. Tobacco use disorder Splinter of finger - SURGERY REFERRAL OP Trial anoro Cont all current meds Stop smoking Rudy Urias MD documented in this encounter Nursing Notes * Hellen Ruffin LPN - 05/28/2023 1:28 PM EST Chief Complaint Patient presents with Follow Up Follow up Pt needs a splitter removed from pointer finger on left hand documented in this encounter Plan of Treatment Upcoming Encounters Date Type Department Care Team (Late st Contact Info) Description 07/30/2023 12:00 PM EDT Office Visit [facility] [address] [place] [id number] Brayden Painting MD [address] [place] [address] Scheduled Procedures Name Priority Associated Diagnoses Date/Ti me COLONOSCOPY FLEXIBLE PROXIMA L DIAGNOSTIC Recall History of colonic polyps Scheduled Referrals Name Type Priority Associated Diagnoses Orde r Schedule SURGERY REFERRAL OP Referral Within 10 da ys (routine) Splinter of finger Ordered: 05/28/2023 Health Maintenance Due Date Last Done Comments DISCUSS TOBACCO CESSATION (REFER TO SMARTSET #3291) 1960 COVID-19 Vaccine (#1) 1960 HIV Screening [...] as of this encounter Visit Diagnoses Diagnosis COPD, moderate (HCC)- Primary Chronic airway obstruction, not elsewhere classified HTN, goal below 140/90 Unspecified essential hypertension Tobacco use disorder Splinter of finger documented in this encounter Care Teams Rug Setter Velvet Relationship Specialty Start Date End Date Brayden Painting MD [address] [place] [address] PCP - General 06/06/1998 documented as of this encounter"
--- OUTSIDE RECORDS SUMMARY | 2023-08-14 07:02 | External Medical Summary | Summary of Care ---
Author Name Unknown Organization [facility] Address [address] [facility] [address] Phone [phone] Care Team Providers Care Overhauler Name Role Phone Howard Painting MD Primary Care Provider [phone] Encounter Details Date Type Department Care Team (Late st Contact Info) Description 02/23/2023 Refill [facility] [address] [place] [address] Howard Painting MD [address] [place] [address] Non-seasonal allergic rhinitis due to other allergic trigger Allergies Active Allergy Reactions Criticality Noted Date Comments Aspirin 01/22/1999 upset stomach Nickel Rash 05/18/2019 documented as of this encounter (statuses as of 02/23/2023) Medications Medication Sig Dispensed Refills Start Date End Date Status guaiFENesin-Code ine 100-10 MG/5ML Oral Syrup (Robitussin AC)Indications:B ronchitis, complicated,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 120 mL 0 04/03/2021 Active Additional Information Patient not taking.Reported on 01/29/2023 Lisinopril 10 MG Oral Tablet (Prinivil)Indica tions:HTN, goal below 140/90 Take 1 Tablet by mouth in the morning. 90 Tablet 3 01/29/2023 Active Atorvastatin Calcium 10 MG Oral Tablet (Lipitor)Indicat ions:Dyslipidemi a, goal LDL below 70 Take 1 Tablet by mouth in the morning. 90 Tablet 3 01/29/2023 Active Trelegy Ellipta 100-62.5-25 MCG/ACT Aerosol Powder Breath Activated (Fluticasone-Ume clidinium-Vilant bong) Inhale 1 Puff by mouth in the morning. 60 Blister Dosing Unit 11 01/29/2023 Active Albuterol Sulfate HFA 108 (90 Base) MCG/ACT Inhalation Aerosol Solution USE 2 PUFFS EVERY 4 HOURS NEEDED FOR WHEEZINGUSE 2 PUFFS EVERY 4 HOURS NEEDED FOR WHEEZING 18 g 1 01/29/2023 Active Fluticasone Propionate 50 MCG/ACT Nasal Suspension (Flonase)Indicat ions:Non-seasona l allergic rhinitis due to other allergic trigger SPRAY 2 SPRAYS INTO EACH NOSTRIL EVERY DAY 48 mL 3 02/23/2023 Active Fluticasone Propionate 50 MCG/ACT Nasal Suspension (Flonase)Indicat ions:Non-seasona l allergic rhinitis due to other allergic trigger SPRAY 2 SPRAYS INTO EACH NOSTRIL EVERY DAY 16 mL 5 01/29/2023 3 Discontinue d(Refill) documented as of this encounter (statuses as of 02/23/2023) Active Problems Problem Noted Date Diagnosed Date COPD, moderate 01/29/2023 Dyslipidemia, goal LDL below 100 06/26/2019 Essential hypertension with goal blood pressure less than 140/90 05/24/2019 Allergic rhinitis 02/09/2014 Tobacco use disorder 02/09/2014 Hx of hysterectomy 08/25/2013 Localized, primary osteoarthritis of hand 2003 documented as of this encounter (statuses as of 02/23/2023) Resolved Problems Problem Noted Date Diagnosed Date [...] as of this encounter (statuses as of 02/23/2023) Immunizations Name Administration Dates Next Due Pneumococcal [...] pur e alcohol) 6 pack per month Sex and Gender Information Value Date Recorded Sex Assigned at Not on file Gender Identity Not on file Sexual Orientation Straight 03/04/2019 11 :29 AM EDT Job Start Date Occupation Industry Not on file Not on file Not on file documented as of this encounter Miscellaneous Notes * Telephone Encounter - Howard Painting MD - 02/23/2023 3:57 PM EDTSigned Prescriptions: Disp Refills Fluticasone Propionate 50 MCG/ACT Nasal Maya*48 mL 3 Sig: SPRAY 2SPRAYS INTO EACH NOSTRIL EVERY DAYAuthorizing Provider: HOWARD PAINTING documented in this encounter Plan of Treatment Upcoming Encounters Date Type Department Care Team (Late st Contact Info) Description 07/30/2023 12:00 PM EDT Office Visit [facility] [address] [facility] [address] Howard Painting MD [address] [place] [facility] [place] [address] Scheduled Procedures Name Priority Associated Diagnoses Date/Ti me COLONOSCOPY FLEXIBLE PROXIMA L DIAGNOSTIC Recall History of colonic polyps Health Maintenance Due Date Last Done Comments DISCUSS TOBACCO CESSATION (REFER TO SMARTSET #[id number]) 1959 COVID-19 Vaccine (#1) 1960 HIV Screening [...] as of this encounter Visit Diagnoses Diagnosis Non-seasonal allergic rhinitis due to other allergic trigger documented in this encounter Care Teams Overhauler Relationship Specialty Start Date End Date Howard Painting MD [address] [place] [address] PCP - General 06/06/1998 documented as of this encounter
--- OUTSIDE RECORDS SUMMARY | 2023-08-14 07:02 | External Medical Summary | Summary of Care ---
Author Name Unknown Organization [facility] Address [address] [facility] [place] [address] Phone [phone] Care Team Providers Care Barrel Rifler Name Role Phone Brayden Painting MD Primary Care Provider [phone] Encounter Details Date Type Department Care Team (Late st Contact Info) Description 03/16/2023 Telephone [facility] [address] [place] [address] Rudy Urias MD [address] [place] [address] Allergies Active Allergy Reactions Criticality Noted Date Comments Aspirin 01/22/1999 upset stomach Nickel Rash 05/18/2019 documented as of this encounter (statuses as of 03/16/2023) Medications Medication Sig Dispensed Refills Start Date End Date Status guaiFENesin-Codei ne 100-10 MG/5ML Oral Syrup (Robitussin AC)Indications:Br onchitis, complicated,Tobac co use disorder Take 5 mL by mouth every 4 hours as needed for Cough. 120 mL 0 04/03/2021 Active Additional Information Patient not taking.Reported on 01/29/2023 Lisinopril 10 MG Oral Tablet (Prinivil)Indicat ions:HTN, goal below 140/90 Take 1 Tablet by mouth in the morning. 90 Tablet 3 01/29/2023 Active Atorvastatin Calcium 10 MG Oral Tablet (Lipitor)Indicati ons:Dyslipidemia, goal LDL below 70 Take 1 Tablet by mouth in the morning. 90 Tablet 3 01/29/2023 Active Trelegy Ellipta 100-62.5-25 MCG/ACT Aerosol Powder Breath Activated (Fluticasone-Umec lidinium-Vilanter ol) Inhale 1 Puff by mouth in the morning. 60 Blister Dosing Unit 11 01/29/2023 Active Albuterol Sulfate HFA 108 (90 Base) MCG/ACT Inhalation Aerosol Solution USE 2 PUFFS EVERY 4 HOURS NEEDED FOR WHEEZINGUSE 2 PUFFS EVERY 4 HOURS NEEDED FOR WHEEZING 18 g 1 01/29/2023 Active Fluticasone Propionate 50 MCG/ACT Nasal Suspension (Flonase)Indicati ons:Non-seasonal allergic rhinitis due to other allergic trigger SPRAY 2 SPRAYS INTO EACH NOSTRIL EVERY DAY 48 mL 3 02/23/2023 Active documented as of this encounter (statuses as of 03/16/2023) Active Problems Problem Noted Date Diagnosed Date COPD, moderate 01/29/2023 Dyslipidemia, goal LDL below 100 06/26/2019 Essential hypertension with goal blood pressure less than 140/90 05/24/2019 Allergic rhinitis 02/09/2014 Tobacco use disorder 02/09/2014 Hx of hysterectomy 08/25/2013 Localized, primary osteoarthritis of hand 2003 documented as of this encounter (statuses as of 03/16/2023) Resolved Problems Problem Noted Date Diagnosed Date [...] as of this encounter (statuses as of 03/16/2023) Immunizations Name Administration Dates Next Due Pneumococcal [...] Telephone Encounter - Rudy Urias MD - 03/16/2023 1:42 PM EST Plz schedule mammo documented in this encounter Plan of Treatment Upcoming Encounters Date Type Department Care Team (Late st Contact Info) Description 07/30/2023 12:00 PM EDT Office Visit [facility] [address] [place] [address] Brayden Painting MD [address] [place] [address] Scheduled Orders Name Type Priority Associated Diagnoses Orde r Schedule MAMMOGRAM SCREENING ADELE BILATERAL Medical Imaging Routine Encounter for screening mammogram for breast cancer Expected: 03/16/2023, Expires: 04/15/2024 Scheduled Procedures Name Priority Associated Diagnoses Date/Ti me COLONOSCOPY FLEXIBLE PROXIMA L DIAGNOSTIC Recall History of colonic polyps Health Maintenance Due Date Last Done Comments DISCUSS TOBACCO CESSATION (REFER TO SMARTSET #0546) 1959 COVID-19 Vaccine (#1) 1960 HIV Screening [...] as of this encounter Visit Diagnoses Diagnosis Encounter for screening mammogram for breast cancer- Primary documented in this encounter Care Teams Barrel Rifler Relationship Specialty Start Date End Date Brayden Painting MD [address] [place] [address] PCP - General 06/06/1998 documented as of this encounter
--- OUTSIDE RECORDS SUMMARY | 2023-08-14 07:02 | External Medical Summary | Summary of Care ---
Author Name Unknown Organization [facility] Address [address] [facility] [address] Phone [phone] Care Team Providers Care Workers Compensation Examiner Name Role Phone Brayden Painting MD Primary Care Provider Reason for Visit * Reason Comments eRx-Medication Refill Encounter Details Date Type Department Care Team (Late st Contact Info) Description 05/07/2023 Refill [facility] [address] [place] [address] Rudy Urias MD [address] [place] [address] Unspecified abnormalities of breathing Allergies Active Allergy Reactions Criticality Noted Date Comments Aspirin 01/22/1999 upset stomach Nickel Rash 05/18/2019 documented as of this encounter (statuses as of 05/10/2023) Medications Medication Sig Dispensed Refills Start Date End Date Status guaiFENesin-Codein e 100-10 MG/5ML Oral Syrup (Robitussin AC)Indications:Bro nchitis, complicated,Tobacc o use disorder Take 5 mL by mouth every 4 hours as needed for Cough. 120 mL 0 1 Active Additional Information Patient not taking.Reported on 01/29/2023 Lisinopril 10 MG Oral Tablet (Prinivil)Indicati ons:HTN, goal below 140/90 Take 1 Tablet by mouth in the morning. 90 Tablet 3 3 Active Atorvastatin Calcium 10 MG Oral Tablet (Lipitor)Indicatio ns:Dyslipidemia, goal LDL below 70 Take 1 Tablet by mouth in the morning. 90 Tablet 3 3 Active Trelegy Ellipta 100-62.5-25 MCG/ACT Aerosol Powder Breath Activated (Fluticasone-Umecl idinium-Vilanterol ) Inhale 1 Puff by mouth in the morning. 60 Blister Dosing Unit 11 3 Active Fluticasone Propionate 50 MCG/ACT Nasal Suspension (Flonase)Indicatio ns:Non-seasonal allergic rhinitis due to other allergic trigger SPRAY 2 SPRAYS INTO EACH NOSTRIL EVERY DAY 48 mL 3 3 Active Albuterol Sulfate HFA 108 (90 Base) MCG/ACT Inhalation Aerosol SolutionIndication s:Unspecified abnormalities of breathing USE 2 PUFFS EVERY 4 HOURS NEEDED FOR WHEEZINGUSE 2 PUFFS EVERY 4 HOURS NEEDED FOR WHEEZING 18 g 2 4 Active Albuterol Sulfate HFA 108 (90 Base) MCG/ACT Inhalation Aerosol Solution USE 2 PUFFS EVERY 4 HOURS NEEDED FOR WHEEZINGUSE 2 PUFFS EVERY 4 HOURS NEEDED FOR WHEEZING 18 g 1 3 05/10/19 24 Discontinued documented as of this encounter (statuses as of 05/10/2023) Active Problems Problem Noted Date Diagnosed Date COPD, moderate 01/29/2023 Dyslipidemia, goal LDL below 100 06/26/2019 Essential hypertension with goal blood pressure less than 140/90 05/24/2019 Allergic rhinitis 02/09/2014 Tobacco use disorder 02/09/2014 Hx of hysterectomy 08/25/2013 Localized, primary osteoarthritis of hand 2003 documented as of this encounter (statuses as of 05/10/2023) Resolved Problems Problem Noted Date Diagnosed Date [...] as of this encounter (statuses as of 05/10/2023) Immunizations Name Administration Dates Next Due Pneumococcal [...] encounter Miscellaneous Notes * Telephone Encounter - John Dumont [facility] - 05/10/2023 9:11 AM ESTSigned Prescriptions: Disp Refills Albuterol Sulfate HFA 108 (90 Base) MCG/AC*18 g 2 Sig: USE 2 PUFFS EVERY 4 HOURS NEEDED FOR WHEEZINGUSE 2 PUFFS EVERY 4 HOURS NEEDED FOR WHEEZINGAuthorizing Provider: Alexis URIAS User: JOHN DUMONT documented in this encounter Plan of Treatment Upcoming Encounters Date Type Department Care Team (Late st Contact Info) Description 07/30/2023 12:00 PM EDT Office Visit [address] [address] Brayden Painting MD [address] [place] [address] Scheduled Procedures Name Priority Associated Diagnoses Date/Ti [...] as of this encounter Visit Diagnoses Diagnosis Unspecified abnormalities of breathing documented in this encounter Care Teams Workers Compensation Examiner Relationship Specialty Start Date End Date Brayden Painting MD [address] [place] [place] [address] PCP - General 06/06/1998 documented as of this encounter
--- OUTSIDE RECORDS SUMMARY | 2023-08-14 07:02 | External Medical Summary | Summary of Care ---
Author Name Unknown Organization [facility] Address [address] [place] [place] [place] [address] Phone [phone] Care Team Providers Care Cook Roast Name Role Phone Brayden Painting MD Primary Care Provider [phone] Reason for Visit * Reason Onset Date Comments Encounter Created in Error 05/12/2023 Encounter Details Date Type Department Care Team (Late st Contact Info) Description 05/12/2023 Telephone [facility] [address] [place] [address] Brayden Painting MD [address] [place] [address] Encounter Created in Error Allergies Active Allergy Reactions Criticality Noted Date Comments Aspirin 01/22/1999 upset stomach Nickel Rash 05/18/2019 documented as of this encounter (statuses as of 05/12/2023) Medications Medication Sig Dispensed Refills Start Date End Date Status guaiFENesin-Codeine 100-10 MG/5ML Oral Syrup (Robitussin AC)Indications:Bron chitis, complicated,Tobacco use disorder Take 5 mL by mouth every 4 hours as needed for Cough. 120 mL 0 04/03/2021 Active Additional Information Patient not taking.Reported on 01/29/2023 Lisinopril 10 MG Oral Tablet (Prinivil)Indicatio ns:HTN, goal below 140/90 Take 1 Tablet by mouth in the morning. 90 Tablet 3 01/29/2023 Active Atorvastatin Calcium 10 MG Oral Tablet (Lipitor)Indication s:Dyslipidemia, goal LDL below 70 Take 1 Tablet by mouth in the morning. 90 Tablet 3 01/29/2023 Active Trelegy Ellipta 100-62.5-25 MCG/ACT Aerosol Powder Breath Activated (Fluticasone-Umecli dinium-Vilanterol) Inhale 1 Puff by mouth in the morning. 60 Blister Dosing Unit 11 01/29/2023 Active Fluticasone Propionate 50 MCG/ACT Nasal [...] FOR WHEEZING 18 g 2 05/10/2023 Active documented as of this encounter (statuses as of 05/12/2023) Active Problems Problem Noted Date Diagnosed Date COPD, moderate 01/29/2023 Dyslipidemia, goal LDL below 100 06/26/2019 Essential hypertension with goal blood pressure less than 140/90 05/24/2019 Allergic rhinitis 02/09/2014 Tobacco use disorder 02/09/2014 Hx of hysterectomy 08/25/2013 Localized, primary osteoarthritis of hand 2003 documented as of this encounter (statuses as of 05/12/2023) Resolved Problems Problem Noted Date Diagnosed Date [...] as of this encounter (statuses as of 05/12/2023) Immunizations Name Administration Dates Next Due Pneumococcal [...] encounter Miscellaneous Notes * Telephone Encounter - Patito Mac OSA - 05/12/2023 3:39 PM EST Error documented in this encounter Plan of Treatment Upcoming Encounters Date Type Department Care Team (Late st Contact Info) Description 05/14/2023 3:40 PM EST Office Visit [facility] [address] [place] [id number] Brayden Painting MD [address] [place] [address] 07/30/2023 12:00 PM EDT Office Visit [facility] [address] [place] [address] Brayden Painting MD [address] [place] [address] Scheduled Procedures Name Priority Associated [...] filedocumented as of this encounter Care Teams Cook Roast Relationship Specialty Start Date End Date Brayden Painting MD [address] [place] [address] PCP - General 06/06/1998 documented as of this encounter
--- OUTSIDE RECORDS SUMMARY | 2023-08-14 07:02 | External Medical Summary | Summary of Care ---
Author Name Unknown Organization [facility] Address [address] [facility] [place] [address] Phone [phone] Care Team Providers Care Loan Servicing Representative Name Role Phone Brayden Painting MD Primary Care Provider [phone] Encounter Details Date Type Department Care Team (Late st Contact Info) Description 03/16/2023 Telephone [facility] [address] [place] [address] Rudy Urias MD [address] [place] [address] Allergies Active Allergy Reactions Criticality [...] Telephone Encounter - Josey Kowalski OSA - 03/16/2023 3:03 PM EST Patient declined scheduling Mammo. 03/16/2023 * Telephone Encounter - Rudy Urias MD - 03/16/2023 1:42 PM EST Plz schedule mammo documented in this encounter Plan of Treatment Upcoming Encounters Date Type Department Care Team (Late st Contact Info) Description 07/30/2023 12:00 PM EDT Office Visit [facility] [address] [place] [address] Brayden Painting MD [address] [place], [place] [id number] Scheduled Orders Name Type Priority Associated Diagnoses Orde r Schedule MAMMOGRAM SCREENING ADELE BILATERAL Medical Imaging Routine Encounter for screening mammogram for breast cancer Expected: 03/16/2023, Expires: 04/15/2024 Scheduled Procedures Name Priority Associated Diagnoses Date/Ti me COLONOSCOPY FLEXIBLE PROXIMA L DIAGNOSTIC Recall History of colonic polyps Health Maintenance Due Date Last Done Comments DISCUSS TOBACCO CESSATION (REFER TO SMARTSET #8846) 1959 COVID-19 Vaccine (#1) 1960 HIV Screening [...] Primary documented in this encounter Care Teams Loan Servicing Representative Relationship Specialty Start Date End Date Brayden Painting MD [address] [place] [address] PCP - General 06/06/1998 documented as of this encounter
[2023-08-14] MEDS: UMECLIDINIUM/VILANTEROL 62.5/25MCG 7 PUFFS/INHALER INH SCH (07:54)
[2023-08-14] MEDS: ATORVASTATIN 10 MG TAB PO SCH (07:54)
[2023-08-14] MEDS: FLUTICASONE PROPIONATE NA SPR 16 GM BTL NAE SCH (07:54)
[2023-08-14] MEDS: SODIUM CHLOR 7% 4 ML NEB NEB SCH (08:38)
[2023-08-14 08:42] LABS: Estimated Average Glucose 134 mg/dl; Hemoglobin A1C 6.3 % (4.5-5.6)
[2023-08-14 08:44] LABS: Albumin Globulin Ratio 1.1 (0.9-2); Albumin Level 2.7 gm/dl (3.4-5.0); BUN Creatinine Ratio 9.1 (10-20); Bilirubin,Total 0.4 mg/dl (0.2-1.0); Calcium 7.8 mg/dl (8.6-10.3); Creatinine Clr Calc Pharmacy 92.8 ml/min; Est GFR (African American) 123.6 ml/min; Est GFR (Non-African American) 106.7 ml/min; Globulin 2.4 gm/dl (2.5-4.0); Phosphorus 2.2 mg/dl (2.5-4.9); Potassium 3.7 mmol/L (3.5-5.1); Total Protein 5.1 gm/dl (6.0-8.3)
[2023-08-14] MEDS ORDERED: lisinopril 10 MG TAB PO SCH (09:00)
[2023-08-14 09:11] LABS: Basophils # (auto) 0.01 K/uL (0.00-0.20); Basophils % (auto) 0.1 %; Echinocytes 1+; Eosinophils # (auto) 0.01 K/uL (0.00-0.50); Eosinophils % (auto) 0.1 %; Hematocrit (blood only) 33.8 % (37.0-47.0); Hemoglobin 12.1 g/dl (12.0-16.0); Immature Granulocytes # (auto) 0.05 K/uL (0.01-0.20); Immature Granulocytes % (auto) 0.7 %; Lymphocytes # (auto) 0.89 K/uL (1.20-3.40); Mean Corpuscular Hemoglobin 32.2 pg (25.0-34.0); Mean Corpuscular Hgb Conc 35.8 g/dL (32.0-36.0); Mean Corpuscular Volume 89.9 fL (80.0-100.0); Mean Platelet Volume 11.6 fL (9.4-12.4); Monocytes # (auto) 0.54 K/uL (0.11-0.59); Monocytes % (auto) 7.9 %; Neutrophils # (auto) 5.35 K/uL (1.40-6.50); Neutrophils % (auto) 78.2 %; Platelet Count 185 K/uL (130-400); Polychromasia 1+; RDW Coefficient of Variation 12.4 % (11.5-14.5); RDW Standard Deviation 40.8 fL (36.4-46.3); Red Blood Count 3.76 M/uL (4.20-5.40); White Blood Count 6.85 K/ul (4.8-10.8)
[2023-08-14] MEDS: DESMOPRESSIN ACETATE 2 MCG in SODIUM CHLORIDE 0.9% 50 ML IV ONE (11:15)
[2023-08-14] MEDS: ALBUT/IPRATROP 3MG/0.5MG NEB 3 ML VIAL NEB SCH (11:15)
--- NOTE | 2023-08-14 12:06 | Electrocardiogram Report ---
Test Reason : Blood Pressure : / mmHG Vent. Rate : 115 BPM Atrial Rate : 147 BPM P-R Int : 000 ms QRS Dur : 104 ms QT Int : 304 ms P-R-T Axes : 042 -64 100 degrees QTc Int : 420 ms Poor data quality, interpretation may be adversely affected Sinus tachycardia with frequent Premature atrial complexes Left axis deviation Incomplete right bundle branch block Left ventricular hypertrophy with repolarization abnormality ( R in aVL ) Anterior infarct , age undetermined Abnormal ECG When compared with ECG of 13-MAR-2005 13:55, Significant changes have occurred Confirmed by Ilan Mccurdy ([id number]) on 08/14/2023 12:06:24 PM Referred By: Confirmed By:Ilan Mccurdy
--- NOTE | 2023-08-14 12:07 | Electrocardiogram Report ---
Test Reason : Blood Pressure : / mmHG Vent. Rate : 106 BPM Atrial Rate : 106 BPM P-R Int : 174 ms QRS Dur : 104 ms QT Int : 358 ms P-R-T Axes : 042 -65 095 degrees QTc Int : 475 ms Sinus tachycardia with Premature atrial complexes Left axis deviation Incomplete right bundle branch block Left ventricular hypertrophy with repolarization abnormality ( R in aVL ) Anterior infarct (cited on or before 13-AUG-2023) Abnormal ECG When compared with ECG of 13-AUG-2023 11:07, (unconfirmed) No significant change Confirmed by Ilan Mccurdy ([id number]) on 08/14/2023 12:06:53 PM Referred By: Confirmed By:Ilan Mccurdy
--- NOTE | 2023-08-14 12:12 | Nephrology Consultation ---
Date of Consultation August 14, 2023 Assessment & Plan (1) Acute hyponatremia: Patient presented with acute hyponatremia likely due to hypovolemia. She received IV fluids and sodium overcorrected from 120-1 35 this morning. -Continue D5 water at 200 mL/h -Will give DDAVP 2 mcg once today -Monitor sodium at least twice daily. Target sodium should to be in the 126 to 130 range today (2) Pneumonia: Patient is on ceftriaxone and doxycycline per primary team. History of Present Illness Reason for Consultation: Hyponatremia with overcorrection Requesting Physician: Gregorio Kyle MD Attending Physician: Gregorio Kyle MD History of Present Illness Patient is 63 year old female with PMH COPD, tobacco use, HTN, dyslipidemia presented to ER with complaint of weakness and diarrhea and cough x 2 weeks. She was admitted with a sodium of 120 yesterday but this overcorrected 135 this morning after getting IV fluids. In the ER patient was also hypoxic and tachycardic. She was found to have adenovirus. She is being treated for pneumonia in the setting of adenovirus. CXR: Opacities left lung. She feels better today. Breathing has improved. She denies diarrhea today. No nausea or vomiting. No pain. She is now getting D5 water at 200 mL/h. Allergies Allergy/AdvReac Type Severity Reaction Status Date / Time No Known Allergies Allergy Unknown Verified 03/30/05 13:21 aspirin AdvReac Mild UPSET Verified 06/07/09 04:19 STOMACH Home Medications Medication Instructions Recorded Confirmed Type albuterol sulfate 90 mcg/actuation 2 puff inhalation Q4H PRN 08/13/23 08/13/23 History aerosol inhaler Shortness Of Breath Or Wheezing atorvastatin 10 mg tablet 10 mg PO DAILY 08/13/23 08/13/23 History fluticasone propionate 50 2 spray intranasal DAILY 08/13/23 08/13/23 History mcg/actuation nasal spray,suspension lisinopril 10 mg tablet 10 mg PO DAILY 08/13/23 08/13/23 History umeclidinium 62.5 mcg-vilanterol 1 inh inhalation DAILY 08/13/23 08/13/23 History 25 mcg/actuation powdr for inhalation (Anoro Ellipta) Patient History Medical History Alcohol use Tobacco use HTN (hypertension) Dyslipidemia COPD (chronic obstructive pulmonary disease) Surgical History History of hysterectomy Family History Other Cancer Coronary heart disease Social History Smoking Status: Former smoker Hx Alcohol Use: Yes Hx Substance Use: No Current Living Situation: Alone Feels Safe at Home: Yes Review of Systems 2 Review of Systems: All other systems were reviewed and negative except as noted in HPI Physical Exam 2 Physical Exam: General exam: Appears comfortable, no acute distress HEENT: Pupils are equal and reactive to light Neck: No JVD, neck is supple trachea is midline Respiratory system: Clear breath sounds bilaterally. Gastrointestinal: Abdomen is soft, non distended, non tender, bowel sounds are present CVS: Regular rate and rhythm. No murmurs, rubs or gallops Musculoskeletal: No joint or muscle tenderness Extremities: Non tender, no edema, peripheral pulses are present Neuro: Oriented, no tremors, no focal neurological deficits Skin: No rashes Results & Data Vital Signs (Past 12 Hours) Vital Signs Temp Pulse Pulse Resp BP BP Pulse Ox 08/14/23 11:36 37.0 C 88 16 90/54 L 92 08/14/23 10:59 85 18 94 08/14/23 08:38 86 18 92 08/14/23 07:50 36.4 C L 99 H 22 96/59 L 92 08/14/23 07:45 08/14/23 07:41 74 08/14/23 07:26 79 18 96 08/14/23 03:07 37.0 C 77 20 96/56 L 92 O2 Del Method O2 Flow Rate 08/14/23 11:36 Nasal Cannula 3 08/14/23 10:59 Nasal Cannula 3 08/14/23 08:38 Room Air 08/14/23 07:50 Nasal Cannula 2 08/14/23 07:45 Nasal Cannula 2 08/14/23 07:41 08/14/23 07:26 Nasal Cannula 2 08/14/23 03:07 Nasal Cannula 2 Laboratory Results 08/14/23 06:58 08/13/23 08/13/2308/13/24 11:16 18:28 06:58 WBC 6.85 RBC 3.76 L MCV 89.9 MCH 32.2 MCHC 35.8 RDW Std Deviation 40.8 RDW Coeff of Aria 12.4 Plt Count 185 MPV 11.6 Phosphorus 2.0 L 1.7 L 2.2 L Albumin 2.7 L
--- NOTE | 2023-08-14 12:16 | Electrocardiogram Report ---
Test Reason : Blood Pressure : / mmHG Vent. Rate : 077 BPM Atrial Rate : 077 BPM P-R Int : 180 ms QRS Dur : 088 ms QT Int : 424 ms P-R-T Axes : 060 -47 061 degrees QTc Int : 479 ms Normal sinus rhythm Left anterior fascicular block Septal infarct (cited on or before 13-AUG-2023) Abnormal ECG When compared with ECG of 13-AUG-2023 11:19, (unconfirmed) Significant changes have occurred Confirmed by Ilan Mccurdy ([id number]) on 08/14/2023 12:16:01 PM Referred By: Brayden Painting Confirmed By:Ilan Mccurdy
[2023-08-14] MEDS: cefTRIAXone SODIUM 2,000 MG in DEXTROSE 5 % MINI-B 50 ML IV SCH (12:25)
--- NOTE | 2023-08-14 13:17 | Hospitalist Progress Note ---
Date of Service August 14, 2023 Assessment & Plan (1) Acute hypoxic respiratory failure: (2) Pneumonia: Plan: Sepsis, POA, secondary to pneumonia Acute hypoxic respiratory failure Pneumonia Adenovirus infection Patient is 63 year old female with PMH COPD, tobacco use, HTN, dyslipidemia presented to ER with complaint of weakness and diarrhea and cough x 2 weeks In ER noted to be hypoxic 88% on room air up to 93% on 3 L. Initially tachycardic 117, BP 119/75, respirations 20, afebrile Lactate: 4.7--> 2.2. No leukocytosis. Procalcitonin: 0.5. + Adenovirus on [employer] respiratory panel CXR: Opacities left lung CTA chest: No pulmonary emboli identified. Multifocal pneumonia throughout the left lung. Moderate emphysema with bronchitis and mucous plugging. Trace left pleural effusion. Mediastinal and hilar lymphadenopathy is likely reactive Legionella pending Continue on ceftriaxone and doxycycline. Airway clearance therapy with hypertonic saline, DuoNebs, incentive spirometry and flutter valve Wean oxygen off as tolerated (3) Diarrhea: Plan: Reports history of diarrhea recently with blood in his stool.Afebrile in ER CT abdomen pelvis: No bowel wall thickening or obstruction. Colonic diverticulosis. No evidence for acute diverticulitis. Normal appendix. Stool PCR and C. difficile ordered (4) Hypokalemia: Plan: K: 2.7 on presentation Repleted; 3.7 today (5) Hyponatremia: Plan: Na: 122 corrected for glucose of 240 on presentation Increased up to 135 when today's lab. Started on D5 for overcorrection Discussed with nephrology; patient given 1 dose of DDAVP Repeat BMP later today (6) Elevated LFTs: Plan: AST: 173, ALT: 121 with normal T. bili and alk phos. No comparison LFTs available at this time Prior 3 beer daily drinker. Has not had a drink for past 12 days Improvement in liver enzymes (7) Elevated glucose: Plan: Random glucose: 240 No prior diagnosis of diabetes Elevation C of 6.3% Prediabetes (8) COPD (chronic obstructive pulmonary disease): Plan: Continue home inhalers Scheduled DuoNebs On antibiotics as above (9) HTN (hypertension): Plan: Continue lisinopril (10) Dyslipidemia: Plan: Continue atorvastatin (11) Tobacco use: Plan: Smoking since age 16, 0.5 PPD Has not smoked for the past 2 weeks Encouraged continue smoking cessation Denies nicotine patch at this time (12) Alcohol use: Plan: Drinks 3 beers daily. Has not had drink since 08/02/2023. Denies a history of alcohol withdrawal Low likelihood withdrawal currently being 2 weeks and/drink DVT Prophylaxis Heparin SQ Full Code as per discussion with pt Follows with Dr Painting for routine care Time spent evaluating patient, direct bedside care, chart review, placing orders, interpretation of diagnostic studies, discussion with consultants, patient, and family members, as well as other required patient management activities is 60-minutes Please note the above document was generated using voice recognition software. It may contain grammatical, syntax or spelling errors. Any formal questions or concerns about the content, text or information contained within the body of this dictation should be directly addressed to the provider for clarification Admission and Anticipated Discharge Date Admission Date: August 13, 2023 Subjective Patient seen and examined at bedside She reports that she is feeling better compared to admission She is requiring oxygen by nasal cannula No significant event overnight Review of Systems Review of Systems: All systems reviewed & are unremarkable except as noted in Subjective Physical Exam Physical Exam: General: chronic ill appearing, in no respiratory distress on 3L via NC, thin female al ears, nose, mucous membranes dry Neck: supple, trachea midline Lungs: Occasional wheeze heard. Minimal crackles on left side CV: RRR, no murmur, no pretibial edema Abd: normal BS, soft, non-tender Ext: no cyanosis, no calf tenderness Neuro: A&O x 3, no focal deficits noted, normal affect Skin: warm, dry Results & Data Results & Data Vital Signs (Past 12 Hours) Vital Signs Temp Pulse Pulse Resp BP BP Pulse Ox 08/14/23 11:36 37.0 C 88 16 90/54 L 92 08/14/23 10:59 85 18 94 08/14/23 08:38 86 18 92 08/14/23 07:50 36.4 C L 99 H 22 96/59 L 92 08/14/23 07:45 08/14/23 07:41 74 08/14/23 07:26 79 18 96 08/14/23 03:07 37.0 C 77 20 96/56 L 92 O2 Del Method O2 Flow Rate 08/14/23 11:36 Nasal Cannula 3 08/14/23 10:59 Nasal Cannula 3 08/14/23 08:38 Room Air 08/14/23 07:50 Nasal Cannula 2 08/14/23 07:45 Nasal Cannula 2 08/14/23 07:41 08/14/23 07:26 Nasal Cannula 2 08/14/23 03:07 Nasal Cannula 2
[2023-08-14 17:13] LABS: Calcium 7.1 mg/dl (8.6-10.3); Creatinine Clr Calc Pharmacy 102.1 ml/min; Est GFR (African American) 127.6 ml/min; Est GFR (Non-African American) 110.1 ml/min
[2023-08-14 19:58] LABS: Adenovirus F 40/41 PCR Not Detected (NotDetected); Astrovirus PCR Not Detected (NotDetected); Campylobacter PCR Not Detected (NotDetected); Cryptosporidium PCR Not Detected (NotDetected); Cyclospora cayetanensis PCR Not Detected (NotDetected); Entamoeba histolytica PCR Not Detected (NotDetected); Enteroaggregative E.coli(EAEC) Not Detected (NotDetected); Enteropathogenic E.coli (EPEC) Not Detected (NotDetected); Enterotoxigenic E.coli (ETEC) Not Detected (NotDetected); Giardia lamblia PCR Not Detected (NotDetected); Norovirus GI/GII PCR Not Detected (NotDetected); Plesiomonas shigelloides PCR Not Detected (NotDetected); Rotavirus A PCR Not Detected (NotDetected); Salmonella PCR Not Detected (NotDetected); Sapovirus PCR Not Detected (NotDetected); Shiga-like Toxin E.coli (STEC) Not Detected (NotDetected); Shigella/Enteroinvasive E.coli Not Detected (NotDetected); Vibrio cholerae PCR Not Detected (NotDetected); Vibrio species PCR Not Detected (NotDetected); Yersinia enterocolitica PCR Not Detected (NotDetected)
[2023-08-14] MEDS: MELATONIN 3 MG TAB PO PRN (20:44)
[2023-08-14 23:32] LABS: BUN Creatinine Ratio 7.9 (10-20); Calcium 7.3 mg/dl (8.6-10.3); Creatinine Clr Calc Pharmacy 107.4 ml/min; Est GFR (African American) 129.7 ml/min; Est GFR (Non-African American) 111.9 ml/min
[2023-08-15 07:26] LABS: BUN Creatinine Ratio 8.3 (10-20); Calcium 8.3 mg/dl (8.6-10.3); Creatinine Clr Calc Pharmacy 113.4 ml/min; Est GFR (African American) 132.1 ml/min; Potassium 3.3 mmol/L (3.5-5.1)
[2023-08-15] MEDS: POTASSIUM CHLORIDE CRTAB 20 MEQ TABCR PO STA (07:59)
[2023-08-15] MEDS: METOPROLOL SUCC 25MG EXT REL TAB PO SCH (09:16)
[2023-08-15] MEDS: POTASSIUM CHLORIDE 20 MEQ/15 ML UDC PO SCH (10:48)
--- NOTE | 2023-08-15 12:49 | Discharge Summary ---
Date of Service August 15, 2023 Admission HPI Per Admitting Provider Patient is 63 year old female with PMH COPD, tobacco use, HTN, dyslipidemia presented to ER with complaint of weakness and diarrhea. History obtained from patient and outpatient chart review. Patient states on 08/03/23 came back from [place] and ate rotisserie chicken and 30 minutes later started with hematochezia. - 08/05/23 had gross red blood from rectum with mucous, mostly all blood without stool. Since that time having diarrhea with 3 episodes daily that has continued. Watery stools. Had tactile fever and chills lasted 3-4 days. Seen PCPs office 08/04/2023 for diarrhea and hematochezia and initially thought may be food poisoning, however patient reports continued symptoms. She states has been coughing x 2 weeks of productive yellow and brownish color sputum. Feels cough might be a little better past couple of days. Denies CP, or noted SOB. Does not wear oxygen at baseline. Recently some dizziness with walking. Last diarrhea yesterday. Initially when symptoms began reports abdominal cramping and bloating which have since resolved but diarrhea continues. Reports poor oral intake. Denies syncope. States this week is just felt "wiped out". Past couple weeks hasn't been smoking. Prior to that 1/2ppd. Smoking started age 16. Drinks 2-3 beers nightly. Last drink 08/02/23. Denies N/V/D/C, ALLISON, orthopnea, palpitations, hemoptysis, sore throat, choking, otalgia, paresthesias, extremity edema, rashes, urinary symptoms. Admission Exam Per Admitting Provider General: chronic ill appearing, in no respiratory distress on 3L via NC, thin female Head: normocephalic, atraumatic Eyes: conjunctiva non-injected, anicteric ENT: normal inspection external ears, nose, mucous membranes dry Neck: supple, trachea midline Lungs: no respiratory distress on current 3L via NC with O2 sat 95%, speaks in sentences. +rhonchi and wheezing throughout CV: RRR, no murmur, no pretibial edema Abd: normal BS, soft, non-tender Ext: no cyanosis, no calf tenderness Neuro: A&O x 3, no focal deficits noted, normal affect Skin: warm, dry Principal Diagnosis Sepsis, POA, secondary to pneumonia Acute hypoxic respiratory failure Pneumonia Adenovirus infection Discharge Exam General: chronic ill appearing, in no respiratory distress on 3L via NC, thin female al ears, nose, mucous membranes dry Neck: supple, trachea midline Lungs: Bilateral clear breath sounds. Minimal crackles on left side CV: RRR, no murmur, no pretibial edema Abd: normal BS, soft, non-tender Ext: no cyanosis, no calf tenderness Neuro: A&O x 3, no focal deficits noted, normal affect Skin: warm, dry Discharge Data Allergies Allergy/AdvReac Type Severity Reaction Status Date / Time No Known Allergies Allergy Unknown Verified 03/30/05 13:21 aspirin AdvReac Mild UPSET Verified 06/07/09 04:19 STOMACH Consultations 08/13/23 15:25 ED Decision to Admit Stat 08/14/23 09:49 Consult Nephrology Routine Ordered Studies 08/13/23 11:22 CT for pulmonary embolism PE [CT angio chest PE protocol] Stat 08/13/23 11:38 CT abd pelvis IV con only Stat Hospital Course (1) Acute hypoxic respiratory failure: (2) Pneumonia: Sepsis, POA, secondary to pneumonia Acute hypoxic respiratory failure Pneumonia Adenovirus infection Patient is 63 year old female with PMH COPD, tobacco use, HTN, dyslipidemia presented to ER with complaint of weakness and diarrhea and cough x 2 weeks In ER noted to be hypoxic 88% on room air up to 93% on 3 L. Initially tachycardic 117, BP 119/75, respirations 20, afebrile Lactate: 4.7--> 2.2. No leukocytosis. Procalcitonin: 0.5. + Adenovirus on [employer] respiratory panel CXR: Opacities left lung CTA chest: No pulmonary emboli identified. Multifocal pneumonia throughout the left lung. Moderate emphysema with bronchitis and mucous plugging. Trace left pleural effusion. Mediastinal and hilar lymphadenopathy is likely reactive Legionella pending During the hospitalization, patient was treated with IV antibiotics with ceftriaxone and doxycycline. She also underwent airway clearance therapy. Oxygen was weaned off. At discharge, patient underwent two-step oxygen evaluation; was not requiring supplemental oxygen. Patient was discharged home on oral antibiotics (3) Diarrhea: Reports history of diarrhea recently with blood in his stool.Afebrile in ER CT abdomen pelvis: No bowel wall thickening or obstruction. Colonic diverticulosis. No evidence for acute diverticulitis. Normal appendix. Stool culture PCR and C. difficile was negative (4) Hyponatremia: Na: 122 on presentation; it overcorrected to 135. Patient was given D5 and DDAVP Sodium appropriately improved. (5) SVT (supraventricular tachycardia): Patient developed start periods of SVT during the hospitalization. Patient denied chest pain, shortness of breath or dizziness Echocardiogram was done which showed EF of 65 to 70%. Discussion was done with on-call sticker operator (Dr. tapia); recommended to start beta-keegan and monitor for 24 hours. Discussed with patient regarding monitoring overnight for recurrence of SVT. Patient did not want to stay in the hospital. I discussed with patient regarding risks of prolonged SVT/arrhythmia which could include and not limited to dizziness, presyncopal, syncopal, stroke or . Patient verbalized and understood the risks of foregoing monitoring. Patient was alert oriented x 3at the time of the discussion. She was discharged home on metoprolol and oral antibiotics I discussed following up with her primary care doctor which she agreed. Total Time Total Time Spent Total Time Spent (In Minutes): 45 Total Time Includes: Examination of the Patient, Discharge Planning, Medication Reconciliation, Communication With Other Providers and Other Discharge Plan Discharge Items Patient Disposition: Against Medical Advice Reason For Visit: PNEUMONIA Activity: Resume your previous activity Non-emergency contact: Primary Care Provider Follow-up/Referrals: Brayden Painting MD [Primary Care Provider] - [facility] [employer] Provider Instructions: You were admitted to the hospital due to low oxygen level which was caused by pneumonia. You are also found to have adenovirus infection. You were treated with antibiotics, airway clearance therapy during the hospitalization. To complete the antibiotic course; you are prescribed cefdinir and doxycycline for 5 more days. You are found to have periods of elevated heart rate. Discussion was done with on-call sticker operator who recommended that you stay in the hospital for 24 more hours to monitor on telemetry. You are prescribed metoprolol 25 mg twice a day to help with the heart rate. Please follow-up with your primary care doctor next week. Pending Studies at Discharge: No Stand-Alone Forms: My [employer], Smoking Cessation Medications and DC Order Prescriptions: New metoprolol succinate 25 mg Tablet Extended Release 24 Hr 25 mg PO BID 30 Days Qty: 60 0RF guaifenesin [Mucinex] 600 mg Tablet Extended Release 12hr 600 mg PO Q12 5 Days Qty: 10 0RF cefdinir 300 mg capsule 300 mg PO BID 5 Days Qty: 10 0RF doxycycline hyclate 100 mg capsule 100 mg PO BID 5 Days Qty: 10 0RF Continued atorvastatin 10 mg tablet 10 mg PO DAILY lisinopril 10 mg tablet 10 mg PO DAILY albuterol sulfate 90 mcg/actuation HFA aerosol inhaler 2 puff INHALATION Q4H PRN (Reason: Shortness Of Breath Or Wheezing) fluticasone propionate 50 mcg/actuation spray,suspension 2 spray INTRANASAL DAILY Anoro Ellipta 62.5-25 mcg/actuation blister with device 1 inh INHALATION DAILY Discharge Orders: Left Against Medical Advice (Routine); Ordered 08/15/23 Ordered By: Gregorio Cherry/Other Patient Handouts: A1C Admission Data Admit Date/Time: 08/13/23 15:02 Attending Provider: Gregorio Kyle Admit Provider: Ramses Salinas Primary Care Provider: Brayden Painting Other Providers: Ramses Salinas; Sari Dee; Chris Gonzáles; Justine Carey; Neo Pardo; Obdulia Meyers
== END 2023-08-15 12:12 | disposition left against medical advice (07) | DRG 871 ==
LOC: ED 10:51 → 2W 15:02 → SUATTDRO 15:02 → 2W 17:00